=== PATIENT | male | born 1970 | race African-American/Black ===

== ENCOUNTER 2021-03-29 16:44 | Inpatient (IN) | payer SELFPAY ==
[~2021-03-29] VITALS: Ht 175.3 cm; Wt 110.9 kg
[~2021-03-29 16:44] MED LIST: ATORVASTATIN CA10 MG; BENICAR40 MG; HYDROCHLOROTHIA25 MG; METOPROLOL TART50 MG; NIFEDIPINE ER60 M1
[2021-03-29] MEDS ORDERED: SODIUM CHLORIDE 0.9% 1000ML 1,000 ML ONE (17:06)
[2021-03-29 17:15] LABS: BASOPHILS % 0.4 % (0.0-1.0); HEMATOCRIT 46.9 % (38.2-49.6); LYMPHOCYTES # (AUTO) 2.5 (1.0-3.2); LYMPHOCYTES % 24.2 % (18.0-39.1); MEAN CORPUSCULAR HEMOGLOBIN 26.3 pg (28-32); MEAN CORPUSCULAR VOLUME 82.3 fL (81-99); MONOCYTES # (AUTO) 0.7 (0.2-0.8); MONOCYTES % 7.3 % (4.4-11.3); NEUTROPHILS # (AUTO) 6.9 (2.1-6.9); NEUTROPHILS % 67.8 % (38.7-80.0); PLATELET COUNT 389 x10e3/uL (140-360); RED CELL DISTRIBUTION WIDTH 13.7 % (11.7-14.4)
[2021-03-29] MEDS ORDERED: SODIUM CHLORIDE 0.9% 1000ML 1,000 ML IV ONE (17:15)
[2021-03-29 17:24] LABS: CLARITY,URINE TURBID (CLEAR); COLOR,URINE BROWN (YELLOW); KETONES,URINE TRACE (NEGATIVE); LEUKOCYTE ESTERASE ,URINE LARGE (NEGATIVE); NITRITE,URINE NEGATIVE (NEGATIVE); PROTEIN,URINE DIPSTICK >=300 (NEGATIVE); URINE UROBILINOGEN 0.2 mg/dL (0.2 - 1)
[2021-03-29 17:28] LABS: ABG HCO3 20 mmol/L (22-26); ABG PCO2 29 mmHg (35-45); ABG PH 7.43 (7.35-7.45); ABG PO2 85 mmHg (80-105); ABG TCO2 20
[2021-03-29] MEDS ORDERED: VANCOMYCIN 1GM/NS 250 ML 250 ML IV ONE (17:30)
[2021-03-29 17:35] LABS: INR 1.13; PROTHROMBIN TIME 15.2 seconds (11.9-14.5)
[2021-03-29] MEDS ORDERED: SODIUM CHLORIDE 0.9% 100 ML ONE (17:35)
[2021-03-29] MEDS ORDERED: CEFEPIME HCL 1 GM VIAL ONE (17:35)
[2021-03-29 17:36] LABS: BACTERIA,URINE MANY /HPF; PARTIAL THROMBOPLASTIN TIME 30.3 seconds (23.8-35.5); WBC,URINE (MAN) 21-50 /HPF (0-5)
[2021-03-29 17:43] LABS: CREATINE KINASE MB 5.8 ng/mL (0-5.0)
[2021-03-29 17:45] LABS: ALBUMIN 3.2 g/dL (3.5-5.0); ALBUMIN/GLOBULIN RATIO 0.6 (0.8-2.0); CALCIUM 10.2 mg/dL (8.4-10.2); CREATININE, SERUM 4.15 mg/dL (0.72-1.25)
[2021-03-29] MEDS ORDERED: CEFEPIME 1 GM in SODIUM CHLORIDE 0.9% 50ML 50 ML IV ONE (18:00)
[2021-03-29] MEDS ORDERED: SODIUM CHLORIDE 0.9% 1000ML 1,000 ML IV STA (18:13)
[2021-03-29] MEDS ORDERED: SODIUM BICARBONATE 8.4% INJ 50 ML SYR IV STA (18:13)
[2021-03-29] MEDS ORDERED: DEXTROSE 50% SYRINGE 50 ML IV STA (18:13)
[2021-03-29] MEDS ORDERED: SOD POLYSTYRENE SULFONATE SUSP 15 GM/60 ML BTL PO ONE (18:15)
[2021-03-29] MEDS ORDERED: INSULIN REGULAR, HUMAN 100 UNIT/1 ML 3ML VIAL IV ONE (18:15)
[2021-03-29] MEDS ORDERED: NIFEDIPINE CR 30 MG TAB PO STA (18:40)
[2021-03-29] MEDS ORDERED: METOPROLOL TARTRATE INJ 1 MG/ML VIAL IV ONE (18:45)
[2021-03-29] MEDS: NICARDIPINE 20MG/200ML PREMIX 200 ML IV PRN (19:29)
[2021-03-29] MEDS ORDERED: NICARDIPINE 20MG/200ML PREMIX 200 ML ONE (19:34)
[2021-03-29] MEDS: SODIUM CHLORIDE 0.45% 1,000 ML IV SCH (20:26)
[2021-03-29 23:00] VITALS: BP 163/145
[2021-03-29 23:29] VITALS: BP 163/145
[2021-03-30] VITALS (24 sets, daily range): BP systolic 124–206; BP diastolic 90–143
[2021-03-30] MEDS: HEPARIN SOD (PORCINE) 5,000 UNIT/ML VIAL SC SCH ×4 (00:09→22:15)
[2021-03-30] MEDS: SODIUM CHLORIDE 0.45% 1,000 ML IV SCH ×2 (00:10→12:37)
[2021-03-30 04:44] LABS: BASOPHILS % 0.1 % (0.0-1.0); CALCIUM IONIZED 1.1 mmol/L (1.09-1.30); HEMATOCRIT 37.7 % (38.2-49.6); LYMPHOCYTES # (AUTO) 1.6 (1.0-3.2); LYMPHOCYTES % 19.5 % (18.0-39.1); MEAN CORPUSCULAR HEMOGLOBIN 26.2 pg (28-32); MEAN CORPUSCULAR HGB CONC 31.8 g/dL (31-35); MEAN CORPUSCULAR VOLUME 82.3 fL (81-99); MONOCYTES # (AUTO) 0.5 (0.2-0.8); MONOCYTES % 6.2 % (4.4-11.3); NEUTROPHILS # (AUTO) 6.1 (2.1-6.9); PLATELET COUNT 298 x10e3/uL (140-360); RED BLOOD COUNT 4.58 x10e6/uL (4.3-5.7); RED CELL DISTRIBUTION WIDTH 13.6 % (11.7-14.4)
[2021-03-30 05:02] LABS: MAGNESIUM 3.3 MG/DL (1.3-2.1)
[2021-03-30 05:13] LABS: ALBUMIN 2.6 g/dL (3.5-5.0); ALBUMIN/GLOBULIN RATIO 0.6 (0.8-2.0); ANION GAP 23.5 mmol/L (8-16); CALCIUM 9.1 mg/dL (8.4-10.2); CREATININE, SERUM 3.32 mg/dL (0.72-1.25); POTASSIUM 4.5 mmol/L (3.5-5.1)
[2021-03-30] MEDS ORDERED: CARVEDILOL 12.5 MG TAB PO SCH ×2 (09:00→17:00)
[2021-03-30 16:37] LABS: ANION GAP 17.4 mmol/L (8-16); CALCIUM 8.7 mg/dL (8.4-10.2); CREATININE, SERUM 3.48 mg/dL (0.72-1.25); POTASSIUM 4.4 mmol/L (3.5-5.1)
[2021-03-30] MEDS ORDERED: CEFEPIME HCL 1 GM VIAL IV SCH (17:00)
[2021-03-30] MEDS ORDERED: MINERAL OIL 132 ML BTL PR ONE (17:00)
[2021-03-30] MEDS: CEFEPIME 1 GM in SODIUM CHLORIDE 0.9% 50ML 50 ML IV SCH (18:35)
[2021-03-30 18:50] LABS: CLARITY,URINE TURBID (CLEAR); COLOR,URINE RED (YELLOW)
[2021-03-30 18:51] LABS: KETONES,URINE 1+ (NEGATIVE); LEUKOCYTE ESTERASE ,URINE LARGE (NEGATIVE); NITRITE,URINE POSITIVE (NEGATIVE); PROTEIN,URINE DIPSTICK >=300 (NEGATIVE); URINE UROBILINOGEN 1 mg/dL (0.2 - 1)
[2021-03-30 19:06] LABS: AMORPHOUS SEDIMENT,URINE MANY (FEW); BACTERIA,URINE MODERATE /HPF; WBC,URINE (MAN) 21-50 /HPF (0-5)
[2021-03-30] MEDS ORDERED: VANCOMYCIN IV ONE (20:00)
[2021-03-30] MEDS ORDERED: NIFEDIPINE CR 30 MG TAB PO SCH (21:00)
[2021-03-30] MEDS: POLYETHYLENE GLYCOL 3350 17 GM PACK PO SCH (21:03)
[2021-03-30] MEDS: CLONIDINE HCL 0.2 MG TAB PO PRN (21:04)
[2021-03-30] MEDS: ACETAMINOPHEN 325 MG/10 ML UDC NG PRN (21:04)
[2021-03-31] VITALS (43 sets, daily range): BP systolic 96–217; BP diastolic 67–155
[2021-03-31] MEDS: SODIUM CHLORIDE 0.45% 1,000 ML IV SCH ×2 (00:57→10:29)
[2021-03-31 04:46] LABS: BASOPHILS % 0.1 % (0.0-1.0); HEMATOCRIT 36.7 % (38.2-49.6); LYMPHOCYTES # (AUTO) 1.5 (1.0-3.2); LYMPHOCYTES % 16.3 % (18.0-39.1); MEAN CORPUSCULAR HEMOGLOBIN 25.8 pg (28-32); MEAN CORPUSCULAR VOLUME 85.9 fL (81-99); MONOCYTES # (AUTO) 0.5 (0.2-0.8); NEUTROPHILS # (AUTO) 6.9 (2.1-6.9); NEUTROPHILS % 77.2 % (38.7-80.0); PLATELET COUNT 278 x10e3/uL (140-360); RED BLOOD COUNT 4.27 x10e6/uL (4.3-5.7); RED CELL DISTRIBUTION WIDTH 13.5 % (11.7-14.4)
[2021-03-31 05:13] LABS: ANION GAP 19.1 mmol/L (8-16); CALCIUM 8.8 mg/dL (8.4-10.2); CREATININE, SERUM 3.34 mg/dL (0.72-1.25); PHOSPHORUS 4.6 MG/DL (2.3-4.7); POTASSIUM 4.1 mmol/L (3.5-5.1)
[2021-03-31] MEDS: HEPARIN SOD (PORCINE) 5,000 UNIT/ML VIAL SC SCH ×3 (06:15→22:00)
[2021-03-31] MEDS: NICARDIPINE 20MG/200ML PREMIX 200 ML IV PRN ×2 (06:41→09:12)
[2021-03-31] MEDS: POLYETHYLENE GLYCOL 3350 17 GM PACK PO SCH (08:24)
[2021-03-31] MEDS: ASPIRIN 325 MG TAB PO SCH (08:24)
[2021-03-31] MEDS: ATORVASTATIN 40 MG TAB NG SCH (08:24)
[2021-03-31] MEDS: CLOPIDOGREL BISULFATE 75 MG TAB PO SCH (08:24)
[2021-03-31] MEDS: ACETAMINOPHEN 325 MG/10 ML UDC NG PRN ×2 (08:25→15:15)
[2021-03-31] MEDS ORDERED: ATORVASTATIN 10 MG TAB NG SCH (09:00)
[2021-03-31] MEDS ORDERED: VANCOMYCIN IV SCH ×2 (11:00→12:00)
[2021-03-31] MEDS: CARVEDILOL 12.5 MG TAB PO SCH (15:15)
[2021-03-31] MEDS: CEFEPIME 1 GM in SODIUM CHLORIDE 0.9% 50ML 50 ML IV SCH (16:33)
[2021-03-31] MEDS: NIFEDIPINE CR 30 MG TAB PO SCH (16:37)
[2021-04-01] VITALS (22 sets, daily range): BP systolic 97–182; BP diastolic 70–122
[2021-04-01] MEDS: ACETAMINOPHEN 325 MG/10 ML UDC NG PRN ×2 (02:00→06:03)
[2021-04-01] MEDS: SODIUM CHLORIDE 0.45% 1,000 ML IV SCH ×3 (04:00→23:30)
[2021-04-01] MEDS: HEPARIN SOD (PORCINE) 5,000 UNIT/ML VIAL SC SCH ×3 (06:00→21:00)
[2021-04-01] MEDS: CLONIDINE HCL 0.2 MG TAB PO PRN (06:02)
[2021-04-01 06:37] LABS: BASOPHILS % 0.1 % (0.0-1.0); EOSINOPHILS % 0.4 % (0.0-6.0); HEMATOCRIT 32.6 % (38.2-49.6); HEMOGLOBIN 10.4 g/dL (14.0-18.0); LYMPHOCYTES # (AUTO) 1.5 (1.0-3.2); LYMPHOCYTES % 18.6 % (18.0-39.1); MEAN CORPUSCULAR HEMOGLOBIN 26.3 pg (28-32); MEAN CORPUSCULAR HGB CONC 31.9 g/dL (31-35); MEAN CORPUSCULAR VOLUME 82.5 fL (81-99); MONOCYTES # (AUTO) 0.4 (0.2-0.8); MONOCYTES % 5.3 % (4.4-11.3); NEUTROPHILS % 75.1 % (38.7-80.0); PLATELET COUNT 236 x10e3/uL (140-360); RED BLOOD COUNT 3.95 x10e6/uL (4.3-5.7); RED CELL DISTRIBUTION WIDTH 13.1 % (11.7-14.4)
[2021-04-01 06:56] LABS: ALBUMIN 2.4 g/dL (3.5-5.0); ALBUMIN/GLOBULIN RATIO 0.6 (0.8-2.0); ANION GAP 14.7 mmol/L (8-16); CALCIUM 8.8 mg/dL (8.4-10.2); CREATININE, SERUM 2.4 mg/dL (0.72-1.25); POTASSIUM 3.7 mmol/L (3.5-5.1)
[2021-04-01 07:18] LABS: MAGNESIUM 2.7 MG/DL (1.3-2.1)
[2021-04-01] MEDS: ATORVASTATIN 40 MG TAB NG SCH (08:22)
[2021-04-01] MEDS: ASPIRIN 325 MG TAB PO SCH (08:22)
[2021-04-01] MEDS: POLYETHYLENE GLYCOL 3350 17 GM PACK PO SCH (08:23)
[2021-04-01] MEDS: NIFEDIPINE CR 30 MG TAB PO SCH ×2 (08:23→16:16)
[2021-04-01] MEDS: CLOPIDOGREL BISULFATE 75 MG TAB PO SCH (08:23)
[2021-04-01] MEDS: CARVEDILOL 12.5 MG TAB PO SCH ×2 (08:23→16:15)
[2021-04-01 12:16] LABS: FERRITIN 470.83 ng/mL (21.81-274.66)
[2021-04-01] MEDS: CEFEPIME 1 GM in SODIUM CHLORIDE 0.9% 50ML 50 ML IV SCH (16:16)
[2021-04-02] VITALS (8 sets, daily range): BP systolic 105–165; BP diastolic 70–121
[2021-04-02 06:06] LABS: BASOPHILS % 0.2 % (0.0-1.0); EOSINOPHILS # (AUTO) 0.1 (0.0-0.4); EOSINOPHILS % 0.6 % (0.0-6.0); HEMATOCRIT 28.4 % (38.2-49.6); HEMOGLOBIN 8.8 g/dL (14.0-18.0); LYMPHOCYTES % 20.5 % (18.0-39.1); MEAN CORPUSCULAR HEMOGLOBIN 26.1 pg (28-32); MEAN CORPUSCULAR VOLUME 84.3 fL (81-99); MONOCYTES # (AUTO) 0.4 (0.2-0.8); MONOCYTES % 4.3 % (4.4-11.3); NEUTROPHILS # (AUTO) 7.1 (2.1-6.9); NEUTROPHILS % 73.9 % (38.7-80.0); PLATELET COUNT 207 x10e3/uL (140-360); RED BLOOD COUNT 3.37 x10e6/uL (4.3-5.7); RED CELL DISTRIBUTION WIDTH 13.2 % (11.7-14.4)
[2021-04-02 06:28] LABS: ALBUMIN 2.1 g/dL (3.5-5.0); ALBUMIN/GLOBULIN RATIO 0.5 (0.8-2.0); ANION GAP 14.8 mmol/L (8-16); CALCIUM 8.2 mg/dL (8.4-10.2); CREATININE, SERUM 2.05 mg/dL (0.72-1.25); POTASSIUM 3.8 mmol/L (3.5-5.1)
[2021-04-02] MEDS: ATORVASTATIN 40 MG TAB NG SCH (08:23)
[2021-04-02] MEDS: ASPIRIN 325 MG TAB PO SCH (08:23)
[2021-04-02] MEDS: CARVEDILOL 12.5 MG TAB PO SCH ×2 (08:23→16:07)
[2021-04-02] MEDS: NIFEDIPINE CR 30 MG TAB PO SCH ×2 (08:24→16:07)
[2021-04-02] MEDS: POLYETHYLENE GLYCOL 3350 17 GM PACK PO SCH (08:24)
[2021-04-02] MEDS: CLOPIDOGREL BISULFATE 75 MG TAB PO SCH (08:24)
[2021-04-02] MEDS: SODIUM FERRIC GLUCONATE COMPLX 125 MG in SODIUM CHLORIDE 0.9% 100 ML 100 ML IV SCH (10:05)
[2021-04-02] MEDS ORDERED: VANCOMYCIN 750MG/NS 150ML IVPB 150 ML IV SCH (11:30)
[2021-04-02] MEDS: SODIUM CHLORIDE 0.45% 1,000 ML IV SCH ×2 (13:06→21:07)
[2021-04-02] MEDS: CEFEPIME 1 GM in SODIUM CHLORIDE 0.9% 50ML 50 ML IV SCH (21:07)
[2021-04-03] VITALS (12 sets, daily range): BP systolic 104–158; BP diastolic 73–116
[2021-04-03] MEDS: CLONIDINE HCL 0.2 MG TAB PO PRN (02:00)
[2021-04-03] MEDS: SODIUM CHLORIDE 0.45% 1,000 ML IV SCH ×3 (02:34→12:34)
[2021-04-03 05:10] LABS: BASOPHILS % 0.2 % (0.0-1.0); EOSINOPHILS # (AUTO) 0.1 (0.0-0.4); EOSINOPHILS % 1.1 % (0.0-6.0); HEMATOCRIT 27.2 % (38.2-49.6); HEMOGLOBIN 8.6 g/dL (14.0-18.0); LYMPHOCYTES % 19.3 % (18.0-39.1); MEAN CORPUSCULAR HEMOGLOBIN 26.3 pg (28-32); MEAN CORPUSCULAR HGB CONC 31.6 g/dL (31-35); MEAN CORPUSCULAR VOLUME 83.2 fL (81-99); MONOCYTES # (AUTO) 0.5 (0.2-0.8); MONOCYTES % 4.6 % (4.4-11.3); NEUTROPHILS # (AUTO) 7.8 (2.1-6.9); NEUTROPHILS % 74.2 % (38.7-80.0); PLATELET COUNT 228 x10e3/uL (140-360); RED BLOOD COUNT 3.27 x10e6/uL (4.3-5.7); RED CELL DISTRIBUTION WIDTH 13.2 % (11.7-14.4)
[2021-04-03 05:36] LABS: ALBUMIN/GLOBULIN RATIO 0.5 (0.8-2.0); ANION GAP 14.8 mmol/L (8-16); CALCIUM 8.1 mg/dL (8.4-10.2); CREATININE, SERUM 1.89 mg/dL (0.72-1.25); POTASSIUM 3.8 mmol/L (3.5-5.1)
[2021-04-03] MEDS: CEFEPIME 1 GM in SODIUM CHLORIDE 0.9% 50ML 50 ML IV SCH ×2 (09:39→20:56)
[2021-04-03] MEDS: NIFEDIPINE CR 30 MG TAB PO SCH ×2 (09:40→17:56)
[2021-04-03] MEDS: CLOPIDOGREL BISULFATE 75 MG TAB PO SCH (09:40)
[2021-04-03] MEDS: ATORVASTATIN 40 MG TAB NG SCH (09:40)
[2021-04-03] MEDS: ASPIRIN 325 MG TAB PO SCH (09:40)
[2021-04-03] MEDS: CARVEDILOL 12.5 MG TAB PO SCH ×2 (09:41→17:57)
[2021-04-03] MEDS: SODIUM FERRIC GLUCONATE COMPLX 125 MG in SODIUM CHLORIDE 0.9% 100 ML 100 ML IV SCH (09:45)
[2021-04-03] MEDS: VANCOMYCIN IV SCH ×2 (10:26→21:55)
[2021-04-03] MEDS: POLYETHYLENE GLYCOL 3350 17 GM PACK PO SCH (10:26)
[2021-04-03] MEDS ORDERED: METOPROLOL TARTRATE INJ 1 MG/ML VIAL IV SCH (18:00)
[2021-04-03] MEDS: SODIUM CHLORIDE 0.9% 1000ML 1,000 ML IV SCH (20:56)
[2021-04-04] VITALS (10 sets, daily range): BP systolic 118–158; BP diastolic 78–97
[2021-04-04 04:49] LABS: BASOPHILS % 0.2 % (0.0-1.0); EOSINOPHILS # (AUTO) 0.1 (0.0-0.4); EOSINOPHILS % 0.6 % (0.0-6.0); HEMATOCRIT 27.2 % (38.2-49.6); HEMOGLOBIN 8.6 g/dL (14.0-18.0); LYMPHOCYTES # (AUTO) 1.6 (1.0-3.2); LYMPHOCYTES % 15.7 % (18.0-39.1); MEAN CORPUSCULAR HEMOGLOBIN 26.1 pg (28-32); MEAN CORPUSCULAR HGB CONC 31.6 g/dL (31-35); MEAN CORPUSCULAR VOLUME 82.4 fL (81-99); MONOCYTES # (AUTO) 0.4 (0.2-0.8); MONOCYTES % 3.9 % (4.4-11.3); NEUTROPHILS # (AUTO) 7.8 (2.1-6.9); NEUTROPHILS % 78.9 % (38.7-80.0); PLATELET COUNT 243 x10e3/uL (140-360)
[2021-04-04 05:04] LABS: ANION GAP 13.7 mmol/L (8-16); CALCIUM 7.9 mg/dL (8.4-10.2); CREATININE, SERUM 1.52 mg/dL (0.72-1.25); POTASSIUM 3.7 mmol/L (3.5-5.1)
[2021-04-04] MEDS: SODIUM CHLORIDE 0.9% 1000ML 1,000 ML IV SCH ×2 (05:07→16:33)
[2021-04-04] MEDS: CEFEPIME 1 GM in SODIUM CHLORIDE 0.9% 50ML 50 ML IV SCH ×2 (08:40→21:07)
[2021-04-04] MEDS: CLOPIDOGREL BISULFATE 75 MG TAB PO SCH (08:44)
[2021-04-04] MEDS: ASPIRIN 325 MG TAB PO SCH (08:44)
[2021-04-04] MEDS: POLYETHYLENE GLYCOL 3350 17 GM PACK PO SCH (08:44)
[2021-04-04] MEDS: NIFEDIPINE CR 30 MG TAB PO SCH ×2 (08:45→16:34)
[2021-04-04] MEDS: CARVEDILOL 12.5 MG TAB PO SCH ×2 (08:45→16:34)
[2021-04-04] MEDS: ATORVASTATIN 40 MG TAB NG SCH (08:45)
[2021-04-04] MEDS: SODIUM FERRIC GLUCONATE COMPLX 125 MG in SODIUM CHLORIDE 0.9% 100 ML 100 ML IV SCH (10:31)
[2021-04-04] MEDS: VANCOMYCIN IV SCH ×2 (12:23→21:55)
[2021-04-05] VITALS (13 sets, daily range): BP systolic 121–145; BP diastolic 87–99
[2021-04-05] MEDS: SODIUM CHLORIDE 0.9% 1000ML 1,000 ML IV SCH ×3 (01:22→23:05)
[2021-04-05 04:54] LABS: BASOPHILS % 0.2 % (0.0-1.0); EOSINOPHILS % 0.3 % (0.0-6.0); HEMATOCRIT 25.7 % (38.2-49.6); HEMOGLOBIN 8.3 g/dL (14.0-18.0); LYMPHOCYTES # (AUTO) 1.4 (1.0-3.2); LYMPHOCYTES % 16.1 % (18.0-39.1); MEAN CORPUSCULAR HEMOGLOBIN 26.5 pg (28-32); MEAN CORPUSCULAR HGB CONC 32.3 g/dL (31-35); MEAN CORPUSCULAR VOLUME 82.1 fL (81-99); MONOCYTES # (AUTO) 0.3 (0.2-0.8); MONOCYTES % 3.9 % (4.4-11.3); NEUTROPHILS # (AUTO) 6.9 (2.1-6.9); PLATELET COUNT 288 x10e3/uL (140-360); RED BLOOD COUNT 3.13 x10e6/uL (4.3-5.7); RED CELL DISTRIBUTION WIDTH 13.1 % (11.7-14.4)
[2021-04-05 05:17] LABS: ALBUMIN 1.8 g/dL (3.5-5.0); ALBUMIN/GLOBULIN RATIO 0.4 (0.8-2.0); ANION GAP 13.4 mmol/L (8-16); CALCIUM 7.7 mg/dL (8.4-10.2); CREATININE, SERUM 1.53 mg/dL (0.72-1.25); POTASSIUM 3.4 mmol/L (3.5-5.1); VANCOMYCIN,RANDOM 28.3 ug/mL
[2021-04-05] MEDS: CEFEPIME 1 GM in SODIUM CHLORIDE 0.9% 50ML 50 ML IV SCH ×2 (08:08→21:00)
[2021-04-05] MEDS: CARVEDILOL 12.5 MG TAB PO SCH ×2 (08:24→17:19)
[2021-04-05] MEDS: BALSAM PERU/CASTOR OIL 60 GM OINT...G. TP SCH (08:24)
[2021-04-05] MEDS: CLOPIDOGREL BISULFATE 75 MG TAB PO SCH (08:24)
[2021-04-05] MEDS: POLYETHYLENE GLYCOL 3350 17 GM PACK PO SCH (08:24)
[2021-04-05] MEDS: ASPIRIN 325 MG TAB PO SCH (08:24)
[2021-04-05] MEDS: ATORVASTATIN 40 MG TAB NG SCH (08:24)
[2021-04-05] MEDS: NIFEDIPINE CR 30 MG TAB PO SCH ×2 (08:24→17:19)
[2021-04-05] MEDS: SODIUM FERRIC GLUCONATE COMPLX 125 MG in SODIUM CHLORIDE 0.9% 100 ML 100 ML IV SCH (09:42)
[2021-04-05] MEDS: VANCOMYCIN IV SCH (10:00)
[2021-04-05] MEDS ORDERED: POTASSIUM CHLORIDE 20 MEQ TAB CR PO ONE (21:00)
[2021-04-05] MEDS ORDERED: KCL 20 MEQ PACKET/ ORAL SOLN NG ONE (22:30)
[2021-04-06] VITALS (7 sets, daily range): BP systolic 106–137; BP diastolic 74–95
[2021-04-06 04:43] LABS: BASOPHILS % 0.1 % (0.0-1.0); EOSINOPHILS % 0.4 % (0.0-6.0); HEMATOCRIT 25.6 % (38.2-49.6); LYMPHOCYTES # (AUTO) 1.2 (1.0-3.2); LYMPHOCYTES % 16.4 % (18.0-39.1); MEAN CORPUSCULAR HEMOGLOBIN 26.2 pg (28-32); MEAN CORPUSCULAR HGB CONC 31.3 g/dL (31-35); MEAN CORPUSCULAR VOLUME 83.9 fL (81-99); MONOCYTES # (AUTO) 0.3 (0.2-0.8); MONOCYTES % 3.6 % (4.4-11.3); NEUTROPHILS # (AUTO) 5.9 (2.1-6.9); PLATELET COUNT 306 x10e3/uL (140-360); RED BLOOD COUNT 3.05 x10e6/uL (4.3-5.7); RED CELL DISTRIBUTION WIDTH 13.5 % (11.7-14.4)
[2021-04-06 05:12] LABS: ANION GAP 13.6 mmol/L (8-16); CALCIUM 7.6 mg/dL (8.4-10.2); CREATININE, SERUM 1.5 mg/dL (0.72-1.25); POTASSIUM 3.6 mmol/L (3.5-5.1)
[2021-04-06] MEDS: POLYETHYLENE GLYCOL 3350 17 GM PACK PO SCH (11:00)
[2021-04-06] MEDS: CEFEPIME 1 GM in SODIUM CHLORIDE 0.9% 50ML 50 ML IV SCH (11:00)
[2021-04-06] MEDS: ASPIRIN 325 MG TAB PO SCH (11:00)
[2021-04-06] MEDS: CLOPIDOGREL BISULFATE 75 MG TAB PO SCH (11:00)
[2021-04-06] MEDS: NIFEDIPINE CR 30 MG TAB PO SCH ×2 (11:01→17:54)
[2021-04-06] MEDS: ATORVASTATIN 40 MG TAB NG SCH (11:01)
[2021-04-06] MEDS: BALSAM PERU/CASTOR OIL 60 GM OINT...G. TP SCH (11:01)
[2021-04-06] MEDS: CARVEDILOL 12.5 MG TAB PO SCH ×2 (11:01→17:54)
[2021-04-06] MEDS ORDERED: DIATRIZOATE MEGL/DIATRIZOA SOD 120 ML BTL PO ONE (11:49)
[2021-04-07] VITALS (8 sets, daily range): BP systolic 96–145; BP diastolic 60–85
[2021-04-07 07:09] LABS: BASOPHILS % 0.3 % (0.0-1.0); EOSINOPHILS % 0.4 % (0.0-6.0); HEMOGLOBIN 7.9 g/dL (14.0-18.0); LYMPHOCYTES # (AUTO) 1.6 (1.0-3.2); LYMPHOCYTES % 16.6 % (18.0-39.1); MEAN CORPUSCULAR HEMOGLOBIN 26.4 pg (28-32); MEAN CORPUSCULAR HGB CONC 31.6 g/dL (31-35); MEAN CORPUSCULAR VOLUME 83.6 fL (81-99); MONOCYTES # (AUTO) 0.5 (0.2-0.8); MONOCYTES % 4.9 % (4.4-11.3); NEUTROPHILS # (AUTO) 7.4 (2.1-6.9); NEUTROPHILS % 77.4 % (38.7-80.0); PLATELET COUNT 384 x10e3/uL (140-360); RED BLOOD COUNT 2.99 x10e6/uL (4.3-5.7); RED CELL DISTRIBUTION WIDTH 13.6 % (11.7-14.4)
[2021-04-07 07:29] LABS: ANION GAP 13.7 mmol/L (8-16); CALCIUM 7.7 mg/dL (8.4-10.2); CREATININE, SERUM 1.6 mg/dL (0.72-1.25); POTASSIUM 3.7 mmol/L (3.5-5.1)
[2021-04-07] MEDS: ATORVASTATIN 40 MG TAB NG SCH (09:15)
[2021-04-07] MEDS: ASPIRIN 325 MG TAB PO SCH (09:15)
[2021-04-07] MEDS: CARVEDILOL 12.5 MG TAB PO SCH ×2 (09:16→17:30)
[2021-04-07] MEDS: CLOPIDOGREL BISULFATE 75 MG TAB PO SCH (09:16)
[2021-04-07] MEDS: POLYETHYLENE GLYCOL 3350 17 GM PACK PO SCH (09:16)
[2021-04-07] MEDS: NIFEDIPINE CR 30 MG TAB PO SCH ×2 (09:16→17:31)
[2021-04-07] MEDS: BALSAM PERU/CASTOR OIL 60 GM OINT...G. TP SCH (15:02)
[2021-04-08] VITALS (8 sets, daily range): BP systolic 108–143; BP diastolic 67–98
[2021-04-08 06:12] LABS: BASOPHILS % 0.2 % (0.0-1.0); EOSINOPHILS # (AUTO) 0.1 (0.0-0.4); EOSINOPHILS % 0.5 % (0.0-6.0); HEMATOCRIT 24.2 % (38.2-49.6); HEMOGLOBIN 7.8 g/dL (14.0-18.0); LYMPHOCYTES # (AUTO) 1.9 (1.0-3.2); LYMPHOCYTES % 20.4 % (18.0-39.1); MEAN CORPUSCULAR HEMOGLOBIN 26.7 pg (28-32); MEAN CORPUSCULAR HGB CONC 32.2 g/dL (31-35); MEAN CORPUSCULAR VOLUME 82.9 fL (81-99); MONOCYTES # (AUTO) 0.6 (0.2-0.8); MONOCYTES % 6.4 % (4.4-11.3); NEUTROPHILS # (AUTO) 6.9 (2.1-6.9); NEUTROPHILS % 72.2 % (38.7-80.0); PLATELET COUNT 392 x10e3/uL (140-360); RED BLOOD COUNT 2.92 x10e6/uL (4.3-5.7); RED CELL DISTRIBUTION WIDTH 14.2 % (11.7-14.4)
[2021-04-08 07:46] LABS: ANION GAP 12.5 mmol/L (8-16); CALCIUM 7.8 mg/dL (8.4-10.2); CREATININE, SERUM 1.54 mg/dL (0.72-1.25); POTASSIUM 3.5 mmol/L (3.5-5.1)
[2021-04-08] MEDS: ASPIRIN 325 MG TAB PO SCH (10:12)
[2021-04-08] MEDS: CLOPIDOGREL BISULFATE 75 MG TAB PO SCH (10:12)
[2021-04-08] MEDS: BALSAM PERU/CASTOR OIL 60 GM OINT...G. TP SCH (10:12)
[2021-04-08] MEDS: CARVEDILOL 12.5 MG TAB PO SCH ×2 (10:12→16:39)
[2021-04-08] MEDS: ATORVASTATIN 40 MG TAB NG SCH (10:12)
[2021-04-08] MEDS: NIFEDIPINE CR 30 MG TAB PO SCH ×2 (10:12→16:39)
[2021-04-08] MEDS: POLYETHYLENE GLYCOL 3350 17 GM PACK PO SCH (10:12)
[2021-04-08] MEDS ORDERED: KCL 20 MEQ PACKET/ ORAL SOLN NG ONE (17:30)
[2021-04-09] VITALS (9 sets, daily range): BP systolic 100–130; BP diastolic 64–80
[2021-04-09 06:18] LABS: BASOPHILS % 0.3 % (0.0-1.0); EOSINOPHILS % 0.4 % (0.0-6.0); HEMATOCRIT 24.3 % (38.2-49.6); HEMOGLOBIN 7.6 g/dL (14.0-18.0); LYMPHOCYTES % 20.2 % (18.0-39.1); MEAN CORPUSCULAR HEMOGLOBIN 26.3 pg (28-32); MEAN CORPUSCULAR HGB CONC 31.3 g/dL (31-35); MEAN CORPUSCULAR VOLUME 84.1 fL (81-99); MONOCYTES # (AUTO) 0.6 (0.2-0.8); MONOCYTES % 5.6 % (4.4-11.3); NEUTROPHILS # (AUTO) 7.1 (2.1-6.9); NEUTROPHILS % 73.1 % (38.7-80.0); PLATELET COUNT 438 x10e3/uL (140-360); RED BLOOD COUNT 2.89 x10e6/uL (4.3-5.7); RED CELL DISTRIBUTION WIDTH 14.4 % (11.7-14.4)
[2021-04-09 06:39] LABS: ANION GAP 12.6 mmol/L (8-16); CALCIUM 7.8 mg/dL (8.4-10.2); CREATININE, SERUM 1.55 mg/dL (0.72-1.25); POTASSIUM 3.6 mmol/L (3.5-5.1)
[2021-04-09] MEDS: CLOPIDOGREL BISULFATE 75 MG TAB PO SCH (08:40)
[2021-04-09] MEDS: PANTOPRAZOLE SOD 40 MG TABEC PO SCH (08:40)
[2021-04-09] MEDS: CARVEDILOL 12.5 MG TAB PO SCH ×2 (08:40→16:16)
[2021-04-09] MEDS: POLYETHYLENE GLYCOL 3350 17 GM PACK PO SCH (08:40)
[2021-04-09] MEDS: NIFEDIPINE CR 30 MG TAB PO SCH ×2 (08:40→16:16)
[2021-04-09] MEDS: ASPIRIN 325 MG TAB PO SCH (08:40)
[2021-04-09] MEDS: ATORVASTATIN 40 MG TAB NG SCH (08:40)
[2021-04-09] MEDS: BALSAM PERU/CASTOR OIL 60 GM OINT...G. TP SCH (10:44)
[2021-04-09] MEDS ORDERED: SODIUM FERRIC GLUCONATE COMPLX 125 MG in SODIUM CHLORIDE 0.9% 100 ML 100 ML IV ONE (11:00)
[2021-04-10] VITALS (22 sets, daily range): BP systolic 62–130; BP diastolic 47–87
[2021-04-10 05:14] LABS: BASOPHILS % 0.4 % (0.0-1.0); HEMATOCRIT 23.4 % (38.2-49.6); HEMOGLOBIN 7.5 g/dL (14.0-18.0); LYMPHOCYTES # (AUTO) 1.9 (1.0-3.2); LYMPHOCYTES % 22.5 % (18.0-39.1); MEAN CORPUSCULAR HEMOGLOBIN 26.6 pg (28-32); MEAN CORPUSCULAR HGB CONC 32.1 g/dL (31-35); MONOCYTES # (AUTO) 0.4 (0.2-0.8); MONOCYTES % 4.8 % (4.4-11.3); NEUTROPHILS % 71.8 % (38.7-80.0); PLATELET COUNT 443 x10e3/uL (140-360); RED BLOOD COUNT 2.82 x10e6/uL (4.3-5.7); RED CELL DISTRIBUTION WIDTH 14.6 % (11.7-14.4)
[2021-04-10] MEDS ORDERED: SODIUM CHLORIDE 0.9% 1000ML 1,000 ML IV STA (05:30)
[2021-04-10] MEDS ORDERED: SODIUM CHLORIDE 0.9% 1000ML 1,000 ML ONE (05:55)
[2021-04-10] MEDS ORDERED: ACETAMINOPHEN 1000 MG/100 ML IV STA (06:00)
[2021-04-10] MEDS ORDERED: ASPIRIN 81 MG CHEW TAB PO ONE (06:00)
[2021-04-10 06:14] LABS: CREATINE KINASE MB 2.5 ng/mL (0-5.0)
[2021-04-10] MEDS ORDERED: ACETAMINOPHEN 1000 MG/100 ML 100 ML IV ONE (06:35)
[2021-04-10 07:13] LABS: INR 1.25; PROTHROMBIN TIME 16.4 seconds (11.9-14.5)
[2021-04-10 07:14] LABS: PARTIAL THROMBOPLASTIN TIME 37.6 seconds (23.8-35.5)
[2021-04-10 07:18] LABS: BASOPHILS % 0.3 % (0.0-1.0); HEMATOCRIT 22.4 % (38.2-49.6); LYMPHOCYTES # (AUTO) 2.8 (1.0-3.2); LYMPHOCYTES % 35.1 % (18.0-39.1); MEAN CORPUSCULAR HEMOGLOBIN 26.6 pg (28-32); MEAN CORPUSCULAR HGB CONC 30.4 g/dL (31-35); MEAN CORPUSCULAR VOLUME 87.5 fL (81-99); MONOCYTES # (AUTO) 0.2 (0.2-0.8); MONOCYTES % 2.9 % (4.4-11.3); NEUTROPHILS # (AUTO) 4.8 (2.1-6.9); NEUTROPHILS % 61.2 % (38.7-80.0); PLATELET COUNT 437 x10e3/uL (140-360); RED BLOOD COUNT 2.56 x10e6/uL (4.3-5.7); RED CELL DISTRIBUTION WIDTH 14.6 % (11.7-14.4)
[2021-04-10 07:22] LABS: HEMOGLOBIN 6.8 g/dL (14.0-18.0)
[2021-04-10 07:24] LABS: ALBUMIN 1.5 g/dL (3.5-5.0); ALBUMIN/GLOBULIN RATIO 0.4 (0.8-2.0); ANION GAP 18.8 mmol/L (8-16); CALCIUM 7.4 mg/dL (8.4-10.2); CREATININE, SERUM 2.24 mg/dL (0.72-1.25); POTASSIUM 3.8 mmol/L (3.5-5.1)
[2021-04-10] MEDS: PANTOPRAZOLE SOD 40 MG TABEC PO SCH (07:30)
[2021-04-10] MEDS ORDERED: LACTATED RINGER'S 1,000 ML INJ ONE (07:30)
[2021-04-10 07:31] LABS: CREATINE KINASE MB 3.1 ng/mL (0-5.0)
[2021-04-10] MEDS ORDERED: LACTATED RINGER'S 1,000 ML ONE (07:41)
[2021-04-10] MEDS ORDERED: VANCOMYCIN 1GM/NS 250 ML 250 ML IV ONE (07:45)
[2021-04-10] MEDS ORDERED: SODIUM CHLORIDE 0.9% 250ML 250 ML IV ONE (08:15)
[2021-04-10] MEDS ORDERED: ACETAMINOPHEN 325 MG TAB PO PRN (08:15)
[2021-04-10 08:19] LABS: ANISOCYTOSIS SLIGHT; LYMPHOCYTES % (MANUAL) 24 % (19-48); MONOCYTES % (MANUAL) 6 % (3.4-9.0); NEUTROPHILS % (MANUAL) 70 % (40-74); PLATELET ESTIMATE SLIGHTLY INCREASED; RBC MORPHOLOGY COMMENT NORMAL
[2021-04-10 08:20] LABS: PLATELET MORPHOLOGY COMMENT FEW LARGE
[2021-04-10] MEDS: POLYETHYLENE GLYCOL 3350 17 GM PACK PO SCH (08:48)
[2021-04-10 09:07] LABS: ABG PCO2 46 mmHg (35-45); ABG PH 7.27 (7.35-7.45)
[2021-04-10 09:08] LABS: ABG HCO3 21 mmol/L (22-26); ABG PO2 79 mmHg (80-105); ABG TCO2 22
[2021-04-10 09:10] LABS: ANISOCYTOSIS SLIGHT; BAND NEUTROPHILS % (MANUAL) 1 %; LYMPHOCYTES % (MANUAL) 44 % (19-48); MONOCYTES % (MANUAL) 4 % (3.4-9.0); NEUTROPHILS % (MANUAL) 51 % (40-74); PLATELET ESTIMATE SLIGHTLY INCREASED; PLATELET MORPHOLOGY COMMENT FEW GIANT
[2021-04-10 09:11] LABS: RBC MORPHOLOGY COMMENT NORMAL
[2021-04-10] MEDS: BALSAM PERU/CASTOR OIL 60 GM OINT...G. TP SCH (09:12)
[2021-04-10] MEDS: ATORVASTATIN 40 MG TAB NG SCH (09:12)
[2021-04-10] MEDS: ASPIRIN 325 MG TAB PO SCH (09:12)
[2021-04-10] MEDS: CLOPIDOGREL BISULFATE 75 MG TAB PO SCH (09:12)
[2021-04-10] MEDS: MEROPENEM 1GM / NS 100ML 100 ML IV SCH ×2 (10:40→21:34)
[2021-04-10] MEDS ORDERED: HEPARIN 25,000 UNIT 1,100 UNIT in DEXTROSE 5% 250ML 250 ML IV SCH (11:00)
[2021-04-10] MEDS ORDERED: HEPARIN 25,000 UNIT 1,200 UNIT in DEXTROSE 5% 250ML 250 ML IV SCH (12:00)
[2021-04-10 12:06] LABS: ABG HCO3 21 mmol/L (22-26); ABG PCO2 32 mmHg (35-45); ABG PH 7.43 (7.35-7.45); ABG PO2 115 mmHg (80-105); ABG TCO2 22
[2021-04-10] MEDS: NOREPINEPHRINE 8 MG/D5W 250 ML 250 ML IV PRN (13:38)
[2021-04-10] MEDS ORDERED: ATROPINE SULFATE 0.1 MG/ML 10ML SYR IV ONE (13:49)
[2021-04-10] MEDS ORDERED: EPINEPHRINE HCL 1:1000 1ML 1 MG/ML AMP IV ONE (13:49)
[2021-04-10] MEDS ORDERED: SODIUM BICARBONATE 8.4% INJ 50 ML SYR IV ONE (13:49)
[2021-04-10] MEDS ORDERED: SODIUM CHLORIDE 0.9% 250ML 250 ML ONE (16:23)
[2021-04-10] MEDS: FENTANYL 2000MCG/NS 250 250 ML IV SCH (17:42)
[2021-04-10] MEDS: LORAZEPAM INJ 2 MG/ML VIAL IV PRN (21:50)
[2021-04-11] VITALS (26 sets, daily range): BP systolic 75–101; BP diastolic 60–74
[2021-04-11 00:23] LABS: HEMATOCRIT 21.9 % (38.2-49.6); HEMOGLOBIN 7.2 g/dL (14.0-18.0)
[2021-04-11] MEDS: NOREPINEPHRINE 8 MG/D5W 250 ML 250 ML IV PRN ×2 (00:36→22:21)
[2021-04-11] MEDS: LACTATED RINGER'S 1,000 ML INJ SCH ×5 (01:19→18:10)
[2021-04-11] MEDS: FENTANYL 2000MCG/NS 250 250 ML IV SCH ×2 (02:30→15:24)
[2021-04-11 06:27] LABS: BASOPHILS % 0.2 % (0.0-1.0); HEMATOCRIT 21.1 % (38.2-49.6); LYMPHOCYTES # (AUTO) 1.9 (1.0-3.2); LYMPHOCYTES % 14.9 % (18.0-39.1); MEAN CORPUSCULAR HEMOGLOBIN 26.6 pg (28-32); MEAN CORPUSCULAR HGB CONC 32.2 g/dL (31-35); MEAN CORPUSCULAR VOLUME 82.4 fL (81-99); MONOCYTES # (AUTO) 0.3 (0.2-0.8); MONOCYTES % 2.5 % (4.4-11.3); NEUTROPHILS # (AUTO) 10.5 (2.1-6.9); NEUTROPHILS % 80.9 % (38.7-80.0); PLATELET COUNT 354 x10e3/uL (140-360); RED BLOOD COUNT 2.56 x10e6/uL (4.3-5.7); RED CELL DISTRIBUTION WIDTH 14.7 % (11.7-14.4)
[2021-04-11 06:39] LABS: HEMOGLOBIN 6.8 g/dL (14.0-18.0)
[2021-04-11 06:55] LABS: ALBUMIN 1.4 g/dL (3.5-5.0); ALBUMIN/GLOBULIN RATIO 0.3 (0.8-2.0); CALCIUM 7.5 mg/dL (8.4-10.2); CREATININE, SERUM 3.04 mg/dL (0.72-1.25)
[2021-04-11] MEDS ORDERED: SODIUM CHLORIDE 0.9% 250ML 250 ML IV ONE (08:00)
[2021-04-11] MEDS: PANTOPRAZOLE SOD 40 MG TABEC PO SCH (08:01)
[2021-04-11] MEDS: POLYETHYLENE GLYCOL 3350 17 GM PACK PO SCH (08:02)
[2021-04-11] MEDS: ASPIRIN 325 MG TAB PO SCH (08:02)
[2021-04-11] MEDS: CLOPIDOGREL BISULFATE 75 MG TAB PO SCH (08:02)
[2021-04-11] MEDS: BALSAM PERU/CASTOR OIL 60 GM OINT...G. TP SCH (08:02)
[2021-04-11] MEDS: ATORVASTATIN 40 MG TAB NG SCH (08:02)
[2021-04-11] MEDS: MEROPENEM 1GM / NS 100ML 100 ML IV SCH ×2 (08:33→21:22)
[2021-04-11 10:20] LABS: ANISOCYTOSIS SLIGHT; BAND NEUTROPHILS % (MANUAL) 2 %; LYMPHOCYTES % (MANUAL) 25 % (19-48); MONOCYTES % (MANUAL) 1 % (3.4-9.0); NEUTROPHILS % (MANUAL) 72 % (40-74); PLATELET ESTIMATE ADEQUATE; PLATELET MORPHOLOGY COMMENT NORMAL; RBC MORPHOLOGY COMMENT NORMAL
[2021-04-11] MEDS: Pantoprazole IV 50 ML IV SCH ×3 (12:56→22:20)
[2021-04-11] MEDS ORDERED: BUMETANIDE INJ 0.25MG/ML 4ML VIAL IV NR (13:15)
[2021-04-11 16:42] LABS: ABG HCO3 19 mmol/L (22-26); ABG PCO2 23 mmHg (35-45); ABG PH 7.53 (7.35-7.45); ABG PO2 187 mmHg (80-105); ABG TCO2 20
[2021-04-12] VITALS (16 sets, daily range): BP systolic 90–144; BP diastolic 54–93
[2021-04-12] MEDS: Pantoprazole IV 50 ML IV SCH ×5 (04:00→21:08)
[2021-04-12 06:00] LABS: BASOPHILS % 0.3 % (0.0-1.0); EOSINOPHILS # (AUTO) 0.1 (0.0-0.4); EOSINOPHILS % 0.6 % (0.0-6.0); HEMATOCRIT 23.7 % (38.2-49.6); HEMOGLOBIN 7.7 g/dL (14.0-18.0); LYMPHOCYTES # (AUTO) 1.6 (1.0-3.2); LYMPHOCYTES % 12.2 % (18.0-39.1); MEAN CORPUSCULAR HEMOGLOBIN 26.6 pg (28-32); MEAN CORPUSCULAR HGB CONC 32.5 g/dL (31-35); MEAN CORPUSCULAR VOLUME 81.7 fL (81-99); MONOCYTES # (AUTO) 0.3 (0.2-0.8); MONOCYTES % 2.6 % (4.4-11.3); NEUTROPHILS # (AUTO) 10.8 (2.1-6.9); NEUTROPHILS % 83.9 % (38.7-80.0); PLATELET COUNT 315 x10e3/uL (140-360); RED CELL DISTRIBUTION WIDTH 14.4 % (11.7-14.4)
[2021-04-12 06:21] LABS: ALBUMIN 1.3 g/dL (3.5-5.0); ALBUMIN/GLOBULIN RATIO 0.3 (0.8-2.0); CALCIUM 7.4 mg/dL (8.4-10.2); CREATININE, SERUM 3.48 mg/dL (0.72-1.25)
[2021-04-12] MEDS: FENTANYL 2000MCG/NS 250 250 ML IV SCH (07:21)
[2021-04-12] MEDS: LACTATED RINGER'S 1,000 ML INJ SCH ×5 (07:30→19:55)
[2021-04-12] MEDS: ATORVASTATIN 40 MG TAB NG SCH (08:42)
[2021-04-12] MEDS: POLYETHYLENE GLYCOL 3350 17 GM PACK PO SCH (08:42)
[2021-04-12] MEDS: BALSAM PERU/CASTOR OIL 60 GM OINT...G. TP SCH (08:42)
[2021-04-12] MEDS: MEROPENEM 1GM / NS 100ML 100 ML IV SCH ×2 (08:42→21:08)
[2021-04-12] MEDS: ASPIRIN 325 MG TAB PO SCH (08:42)
[2021-04-12 14:22] LABS: ABG HCO3 21 mmol/L (22-26); ABG PCO2 29 mmHg (35-45); ABG PH 7.48 (7.35-7.45); ABG PO2 117 mmHg (80-105); ABG TCO2 23
[2021-04-12] MEDS ORDERED: BUMETANIDE INJ 0.25MG/ML 4ML VIAL IV ONE (14:30)
[2021-04-13] VITALS (15 sets, daily range): BP systolic 104–134; BP diastolic 74–93
[2021-04-13] MEDS: Pantoprazole IV 50 ML IV SCH ×5 (02:00→20:36)
[2021-04-13] MEDS: LACTATED RINGER'S 1,000 ML INJ SCH ×4 (02:55→20:36)
[2021-04-13 04:48] LABS: BASOPHILS % 0.3 % (0.0-1.0); EOSINOPHILS % 0.2 % (0.0-6.0); HEMOGLOBIN 8.2 g/dL (14.0-18.0); LYMPHOCYTES # (AUTO) 1.2 (1.0-3.2); LYMPHOCYTES % 10.4 % (18.0-39.1); MEAN CORPUSCULAR HGB CONC 32.8 g/dL (31-35); MEAN CORPUSCULAR VOLUME 82.2 fL (81-99); MONOCYTES # (AUTO) 0.4 (0.2-0.8); MONOCYTES % 3.3 % (4.4-11.3); NEUTROPHILS # (AUTO) 10.2 (2.1-6.9); NEUTROPHILS % 85.3 % (38.7-80.0); PLATELET COUNT 295 x10e3/uL (140-360); RED BLOOD COUNT 3.04 x10e6/uL (4.3-5.7); RED CELL DISTRIBUTION WIDTH 14.3 % (11.7-14.4)
[2021-04-13 05:27] LABS: ALBUMIN 1.3 g/dL (3.5-5.0); ALBUMIN/GLOBULIN RATIO 0.3 (0.8-2.0); ANION GAP 16.8 mmol/L (8-16); CALCIUM 7.4 mg/dL (8.4-10.2); CREATININE, SERUM 3.26 mg/dL (0.72-1.25); POTASSIUM 3.8 mmol/L (3.5-5.1)
[2021-04-13 06:35] LABS: LYMPHOCYTES % (MANUAL) 7 % (19-48); MONOCYTES % (MANUAL) 2 % (3.4-9.0); NEUTROPHILS % (MANUAL) 91 % (40-74); PLATELET ESTIMATE ADEQUATE; PLATELET MORPHOLOGY COMMENT NORMAL; RBC MORPHOLOGY COMMENT NORMAL
[2021-04-13] MEDS: BALSAM PERU/CASTOR OIL 60 GM OINT...G. TP SCH (08:29)
[2021-04-13] MEDS: ATORVASTATIN 40 MG TAB NG SCH (08:29)
[2021-04-13] MEDS: ASPIRIN 325 MG TAB PO SCH (08:29)
[2021-04-13] MEDS: POLYETHYLENE GLYCOL 3350 17 GM PACK PO SCH (08:29)
[2021-04-13] MEDS: MEROPENEM 1GM / NS 100ML 100 ML IV SCH ×2 (08:32→20:36)
[2021-04-13] MEDS: FENTANYL 2000MCG/NS 250 250 ML IV SCH (09:00)
[2021-04-14] VITALS (26 sets, daily range): BP systolic 105–143; BP diastolic 76–94
[2021-04-14] MEDS: Pantoprazole IV 50 ML IV SCH ×5 (04:25→20:57)
[2021-04-14] MEDS: FENTANYL 2000MCG/NS 250 250 ML IV SCH (04:27)
[2021-04-14 04:45] LABS: BASOPHILS % 0.1 % (0.0-1.0); EOSINOPHILS % 0.1 % (0.0-6.0); HEMATOCRIT 25.5 % (38.2-49.6); HEMOGLOBIN 8.3 g/dL (14.0-18.0); LYMPHOCYTES # (AUTO) 1.1 (1.0-3.2); LYMPHOCYTES % 12.4 % (18.0-39.1); MEAN CORPUSCULAR HEMOGLOBIN 26.9 pg (28-32); MEAN CORPUSCULAR HGB CONC 32.5 g/dL (31-35); MEAN CORPUSCULAR VOLUME 82.5 fL (81-99); MONOCYTES # (AUTO) 0.4 (0.2-0.8); MONOCYTES % 4.7 % (4.4-11.3); NEUTROPHILS # (AUTO) 7.3 (2.1-6.9); NEUTROPHILS % 81.9 % (38.7-80.0); PLATELET COUNT 275 x10e3/uL (140-360); RED BLOOD COUNT 3.09 x10e6/uL (4.3-5.7); RED CELL DISTRIBUTION WIDTH 14.4 % (11.7-14.4)
[2021-04-14 05:05] LABS: ALBUMIN 1.1 g/dL (3.5-5.0); ALBUMIN/GLOBULIN RATIO 0.3 (0.8-2.0); ANION GAP 14.2 mmol/L (8-16); CALCIUM 7.4 mg/dL (8.4-10.2); CREATININE, SERUM 2.78 mg/dL (0.72-1.25); POTASSIUM 3.2 mmol/L (3.5-5.1)
[2021-04-14] MEDS: BALSAM PERU/CASTOR OIL 60 GM OINT...G. TP SCH (08:02)
[2021-04-14] MEDS: ASPIRIN 325 MG TAB PO SCH (08:02)
[2021-04-14] MEDS: ATORVASTATIN 40 MG TAB NG SCH (08:02)
[2021-04-14] MEDS: POLYETHYLENE GLYCOL 3350 17 GM PACK PO SCH (08:02)
[2021-04-14] MEDS ORDERED: POTASSIUM CHLORIDE 20 MEQ TAB CR PO ONE ×2 (09:00→13:00)
[2021-04-14] MEDS: MEROPENEM 1GM / NS 100ML 100 ML IV SCH ×2 (09:10→20:57)
[2021-04-14] MEDS: LACTATED RINGER'S 1,000 ML INJ SCH (09:29)
[2021-04-15] VITALS (27 sets, daily range): BP systolic 109–198; BP diastolic 81–133
[2021-04-15] MEDS: LORAZEPAM INJ 2 MG/ML VIAL IV PRN (00:57)
[2021-04-15] MEDS ORDERED: LABETALOL HCL 5 MG/ML 20ML VIAL IV PRN (01:15)
[2021-04-15] MEDS ORDERED: ACETAMINOPHEN 1000 MG/100 ML IV STA (01:15)
[2021-04-15] MEDS ORDERED: LABETALOL HCL 20 ML ONE (01:16)
[2021-04-15] MEDS ORDERED: ACETAMINOPHEN 1000 MG/100 ML IV PRN (01:30)
[2021-04-15] MEDS: Pantoprazole IV 50 ML IV SCH ×5 (02:07→21:23)
[2021-04-15 03:43] LABS: BASOPHILS % 0.3 % (0.0-1.0); EOSINOPHILS % 0.2 % (0.0-6.0); HEMATOCRIT 27.8 % (38.2-49.6); HEMOGLOBIN 9.1 g/dL (14.0-18.0); LYMPHOCYTES % 15.1 % (18.0-39.1); MEAN CORPUSCULAR HGB CONC 32.7 g/dL (31-35); MEAN CORPUSCULAR VOLUME 82.5 fL (81-99); MONOCYTES # (AUTO) 0.4 (0.2-0.8); MONOCYTES % 6.1 % (4.4-11.3); NEUTROPHILS % 77.7 % (38.7-80.0); PLATELET COUNT 297 x10e3/uL (140-360); RED BLOOD COUNT 3.37 x10e6/uL (4.3-5.7); RED CELL DISTRIBUTION WIDTH 13.9 % (11.7-14.4)
[2021-04-15 04:02] LABS: ALBUMIN 1.2 g/dL (3.5-5.0); ALBUMIN/GLOBULIN RATIO 0.3 (0.8-2.0); ANION GAP 16.4 mmol/L (8-16); CALCIUM 7.3 mg/dL (8.4-10.2); CREATININE, SERUM 2.65 mg/dL (0.72-1.25); POTASSIUM 3.4 mmol/L (3.5-5.1)
[2021-04-15] MEDS ORDERED: POTASSIUM CHLORIDE 20MEQ/100ML 100 ML IV ONE ×2 (06:15→12:34)
[2021-04-15] MEDS: ATORVASTATIN 40 MG TAB NG SCH (08:02)
[2021-04-15] MEDS: POLYETHYLENE GLYCOL 3350 17 GM PACK PO SCH (08:03)
[2021-04-15] MEDS: BALSAM PERU/CASTOR OIL 60 GM OINT...G. TP SCH (08:03)
[2021-04-15] MEDS: ASPIRIN 325 MG TAB PO SCH (08:03)
[2021-04-15] MEDS: MEROPENEM 1GM / NS 100ML 100 ML IV SCH ×2 (10:09→19:41)
[2021-04-15] MEDS: LACTATED RINGER'S 1,000 ML INJ SCH ×2 (10:09→22:26)
[2021-04-15] MEDS: LABETALOL HCL 5 MG/ML 20ML VIAL IV PRN ×2 (13:54→14:04)
[2021-04-15] MEDS ORDERED: LORAZEPAM INJ 2 MG/ML VIAL IV PRN (14:15)
[2021-04-15] MEDS: PROPOFOL IV EMULSION 10MG/ML 100 ML IV SCH ×3 (16:11→22:26)
[2021-04-15] MEDS ORDERED: PROPOFOL IV EMULSION 10MG/ML 100 ML IV SCH (21:30)
[2021-04-16] VITALS (26 sets, daily range): BP systolic 96–160; BP diastolic 71–118
[2021-04-16 03:54] LABS: BASOPHILS % 0.1 % (0.0-1.0); EOSINOPHILS % 0.1 % (0.0-6.0); HEMATOCRIT 27.6 % (38.2-49.6); LYMPHOCYTES # (AUTO) 1.1 (1.0-3.2); LYMPHOCYTES % 15.7 % (18.0-39.1); MEAN CORPUSCULAR HEMOGLOBIN 27.3 pg (28-32); MEAN CORPUSCULAR HGB CONC 32.6 g/dL (31-35); MEAN CORPUSCULAR VOLUME 83.6 fL (81-99); MONOCYTES # (AUTO) 0.3 (0.2-0.8); MONOCYTES % 3.9 % (4.4-11.3); NEUTROPHILS # (AUTO) 5.7 (2.1-6.9); NEUTROPHILS % 79.4 % (38.7-80.0); PLATELET COUNT 295 x10e3/uL (140-360)
[2021-04-16] MEDS: Pantoprazole IV 50 ML IV SCH ×5 (04:00→23:51)
[2021-04-16 04:16] LABS: ALBUMIN 1.1 g/dL (3.5-5.0); ALBUMIN/GLOBULIN RATIO 0.3 (0.8-2.0); ANION GAP 14.6 mmol/L (8-16); CALCIUM 7.2 mg/dL (8.4-10.2); CREATININE, SERUM 2.2 mg/dL (0.72-1.25); POTASSIUM 3.6 mmol/L (3.5-5.1)
[2021-04-16] MEDS: METOCLOPRAMIDE HCL 10 MG/2ML VIAL IV SCH ×4 (05:47→23:51)
[2021-04-16] MEDS: ASPIRIN 325 MG TAB PO SCH (08:14)
[2021-04-16] MEDS: POLYETHYLENE GLYCOL 3350 17 GM PACK PO SCH (08:14)
[2021-04-16] MEDS: ATORVASTATIN 40 MG TAB NG SCH (08:14)
[2021-04-16] MEDS: BALSAM PERU/CASTOR OIL 60 GM OINT...G. TP SCH (08:15)
[2021-04-16] MEDS: PROPOFOL IV EMULSION 10MG/ML 100 ML IV SCH ×2 (08:21→22:48)
[2021-04-16] MEDS: MEROPENEM 1GM / NS 100ML 100 ML IV SCH ×2 (09:30→21:56)
[2021-04-16 14:35] LABS: ABG HCO3 23 mmol/L (22-26); ABG PCO2 30 mmHg (35-45); ABG PH 7.49 (7.35-7.45); ABG PO2 149 mmHg (80-105); ABG TCO2 24
[2021-04-16] MEDS: LACTATED RINGER'S 1,000 ML INJ SCH ×2 (14:52→23:51)
[2021-04-17] VITALS (16 sets, daily range): BP systolic 139–162; BP diastolic 102–117
[2021-04-17] MEDS: LABETALOL HCL 5 MG/ML 20ML VIAL IV PRN ×2 (01:25→22:08)
[2021-04-17] MEDS: Pantoprazole IV 50 ML IV SCH ×4 (02:43→20:26)
[2021-04-17] MEDS: METOCLOPRAMIDE HCL 10 MG/2ML VIAL IV SCH ×3 (05:30→17:40)
[2021-04-17 05:39] LABS: BASOPHILS % 0.1 % (0.0-1.0); EOSINOPHILS % 0.3 % (0.0-6.0); HEMATOCRIT 29.5 % (38.2-49.6); HEMOGLOBIN 9.3 g/dL (14.0-18.0); LYMPHOCYTES # (AUTO) 1.3 (1.0-3.2); LYMPHOCYTES % 16.8 % (18.0-39.1); MEAN CORPUSCULAR HEMOGLOBIN 26.8 pg (28-32); MEAN CORPUSCULAR HGB CONC 31.5 g/dL (31-35); MONOCYTES # (AUTO) 0.3 (0.2-0.8); MONOCYTES % 3.6 % (4.4-11.3); NEUTROPHILS # (AUTO) 6.3 (2.1-6.9); NEUTROPHILS % 78.7 % (38.7-80.0); PLATELET COUNT 261 x10e3/uL (140-360); RED BLOOD COUNT 3.47 x10e6/uL (4.3-5.7); RED CELL DISTRIBUTION WIDTH 14.2 % (11.7-14.4)
[2021-04-17 06:13] LABS: ALBUMIN 1.1 g/dL (3.5-5.0); ALBUMIN/GLOBULIN RATIO 0.3 (0.8-2.0); ANION GAP 13.3 mmol/L (8-16); CALCIUM 7.6 mg/dL (8.4-10.2); CREATININE, SERUM 1.91 mg/dL (0.72-1.25); POTASSIUM 3.3 mmol/L (3.5-5.1)
[2021-04-17] MEDS: BALSAM PERU/CASTOR OIL 60 GM OINT...G. TP SCH (08:08)
[2021-04-17] MEDS: ATORVASTATIN 40 MG TAB NG SCH (08:08)
[2021-04-17] MEDS: POLYETHYLENE GLYCOL 3350 17 GM PACK PO SCH (08:08)
[2021-04-17] MEDS: ASPIRIN 325 MG TAB PO SCH (08:08)
[2021-04-17] MEDS: MEROPENEM 1GM / NS 100ML 100 ML IV SCH ×2 (08:34→20:29)
[2021-04-17] MEDS ORDERED: POTASSIUM CHLORIDE 20 MEQ TAB CR PO ONE (11:10)
[2021-04-17] MEDS ORDERED: CALCIUM GLUCONATE 10% INJ 4.65 MEQ in SODIUM CHLORIDE 0.9% 50ML 50 ML IV ONE (11:15)
[2021-04-17] MEDS ORDERED: POTASSIUM CHLORIDE 20MEQ/15ML UDC NG ONE (11:30)
[2021-04-17] MEDS ORDERED: KCL 20 MEQ PACKET/ ORAL SOLN NG ONE (11:45)
[2021-04-17] MEDS: LACTATED RINGER'S 1,000 ML INJ SCH (14:01)
[2021-04-18] VITALS (25 sets, daily range): BP systolic 127–167; BP diastolic 92–118
[2021-04-18] MEDS: METOCLOPRAMIDE HCL 10 MG/2ML VIAL IV SCH ×4 (00:07→17:07)
[2021-04-18] MEDS: Pantoprazole IV 50 ML IV SCH ×5 (00:40→21:07)
[2021-04-18 04:53] LABS: BASOPHILS % 0.1 % (0.0-1.0); EOSINOPHILS # (AUTO) 0.1 (0.0-0.4); EOSINOPHILS % 0.6 % (0.0-6.0); HEMATOCRIT 29.1 % (38.2-49.6); HEMOGLOBIN 9.1 g/dL (14.0-18.0); LYMPHOCYTES % 23.5 % (18.0-39.1); MEAN CORPUSCULAR HEMOGLOBIN 26.4 pg (28-32); MEAN CORPUSCULAR HGB CONC 31.3 g/dL (31-35); MEAN CORPUSCULAR VOLUME 84.3 fL (81-99); MONOCYTES # (AUTO) 0.3 (0.2-0.8); MONOCYTES % 3.9 % (4.4-11.3); NEUTROPHILS % 71.3 % (38.7-80.0); PLATELET COUNT 285 x10e3/uL (140-360); RED BLOOD COUNT 3.45 x10e6/uL (4.3-5.7); RED CELL DISTRIBUTION WIDTH 13.9 % (11.7-14.4)
[2021-04-18 05:19] LABS: ALBUMIN 1.2 g/dL (3.5-5.0); ALBUMIN/GLOBULIN RATIO 0.3 (0.8-2.0); ANION GAP 11.5 mmol/L (8-16); CALCIUM 7.6 mg/dL (8.4-10.2); CREATININE, SERUM 1.7 mg/dL (0.72-1.25); POTASSIUM 3.5 mmol/L (3.5-5.1)
[2021-04-18] MEDS: LACTATED RINGER'S 1,000 ML INJ SCH ×2 (05:41→17:42)
[2021-04-18] MEDS: PROPOFOL IV EMULSION 50 ML IV SCH ×5 (07:58→22:00)
[2021-04-18] MEDS: BALSAM PERU/CASTOR OIL 60 GM OINT...G. TP SCH (08:01)
[2021-04-18] MEDS: POLYETHYLENE GLYCOL 3350 17 GM PACK PO SCH (08:01)
[2021-04-18] MEDS: ATORVASTATIN 40 MG TAB NG SCH (08:01)
[2021-04-18] MEDS: ASPIRIN 325 MG TAB PO SCH (08:01)
[2021-04-18] MEDS: LABETALOL HCL 5 MG/ML 20ML VIAL IV PRN (08:45)
[2021-04-18] MEDS: MEROPENEM 1GM / NS 100ML 100 ML IV SCH ×2 (08:46→21:10)
[2021-04-18] MEDS ORDERED: VECURONIUM BROMIDE FOR INJ 20 MG VIAL IV ONE (13:50)
[2021-04-18] MEDS ORDERED: ETOMIDATE 40 MG/ 20ML VIAL IV ONE (13:50)
[2021-04-18] MEDS ORDERED: WATER STERILE 10 ML VIAL IV ONE (13:52)
[2021-04-19] VITALS (28 sets, daily range): BP systolic 135–177; BP diastolic 96–125
[2021-04-19] MEDS: Pantoprazole IV 50 ML IV SCH ×5 (02:15→23:07)
[2021-04-19] MEDS: LABETALOL HCL 5 MG/ML 20ML VIAL IV PRN ×4 (02:25→17:05)
[2021-04-19 04:48] LABS: BASOPHILS % 0.1 % (0.0-1.0); EOSINOPHILS % 0.3 % (0.0-6.0); HEMATOCRIT 27.8 % (38.2-49.6); HEMOGLOBIN 8.7 g/dL (14.0-18.0); LYMPHOCYTES # (AUTO) 1.8 (1.0-3.2); LYMPHOCYTES % 16.6 % (18.0-39.1); MEAN CORPUSCULAR HEMOGLOBIN 26.7 pg (28-32); MEAN CORPUSCULAR HGB CONC 31.3 g/dL (31-35); MEAN CORPUSCULAR VOLUME 85.3 fL (81-99); MONOCYTES # (AUTO) 0.4 (0.2-0.8); MONOCYTES % 3.3 % (4.4-11.3); NEUTROPHILS # (AUTO) 8.5 (2.1-6.9); NEUTROPHILS % 79.3 % (38.7-80.0); PLATELET COUNT 254 x10e3/uL (140-360); RED BLOOD COUNT 3.26 x10e6/uL (4.3-5.7); RED CELL DISTRIBUTION WIDTH 13.8 % (11.7-14.4)
[2021-04-19 05:08] LABS: ALBUMIN 1.1 g/dL (3.5-5.0); ALBUMIN/GLOBULIN RATIO 0.3 (0.8-2.0); ANION GAP 12.2 mmol/L (8-16); CALCIUM 7.5 mg/dL (8.4-10.2); CREATININE, SERUM 1.53 mg/dL (0.72-1.25); POTASSIUM 3.2 mmol/L (3.5-5.1)
[2021-04-19] MEDS: METOCLOPRAMIDE HCL 10 MG/2ML VIAL IV SCH ×5 (05:32→23:07)
[2021-04-19] MEDS: PROPOFOL IV EMULSION 50 ML IV SCH ×6 (06:59→20:30)
[2021-04-19] MEDS: POLYETHYLENE GLYCOL 3350 17 GM PACK PO SCH (08:28)
[2021-04-19] MEDS: ASPIRIN 325 MG TAB PO SCH (08:28)
[2021-04-19] MEDS: BALSAM PERU/CASTOR OIL 60 GM OINT...G. TP SCH (08:28)
[2021-04-19] MEDS: ATORVASTATIN 40 MG TAB NG SCH (08:29)
[2021-04-19] MEDS: LACTATED RINGER'S 1,000 ML INJ SCH (08:30)
[2021-04-19] MEDS: MEROPENEM 1GM / NS 100ML 100 ML IV SCH ×2 (08:38→20:15)
[2021-04-19] MEDS ORDERED: BUPIVACAINE 0.5%/EPI 30 ML SDV INJ ONE (11:02)
[2021-04-19] MEDS ORDERED: POTASSIUM CHLORIDE 20MEQ/100ML 100 ML IV ONE (11:15)
[2021-04-19 11:35] LABS: ABG PCO2 31 mmHg (35-45)
[2021-04-19 11:36] LABS: ABG HCO3 25 mmol/L (22-26); ABG PO2 86 mmHg (80-105); ABG TCO2 26
[2021-04-19 11:53] LABS: FERRITIN 2386.19 ng/mL (21.81-274.66)
[2021-04-19] MEDS: DEXTROSE 5% 1,000 ML IV SCH (17:05)
[2021-04-19] MEDS: NICARDIPINE 20MG/200ML PREMIX 200 ML IV SCH (21:16)
[2021-04-20] VITALS (27 sets, daily range): BP systolic 121–154; BP diastolic 73–106
[2021-04-20] MEDS: PROPOFOL IV EMULSION 50 ML IV SCH ×8 (02:25→21:00)
[2021-04-20] MEDS: Pantoprazole IV 50 ML IV SCH ×4 (03:50→21:19)
[2021-04-20] MEDS: DEXTROSE 5% 1,000 ML IV SCH ×2 (03:50→15:35)
[2021-04-20 03:55] LABS: BASOPHILS % 0.2 % (0.0-1.0); EOSINOPHILS # (AUTO) 0.1 (0.0-0.4); EOSINOPHILS % 0.5 % (0.0-6.0); HEMATOCRIT 28.7 % (38.2-49.6); HEMOGLOBIN 8.9 g/dL (14.0-18.0); LYMPHOCYTES # (AUTO) 1.8 (1.0-3.2); LYMPHOCYTES % 19.6 % (18.0-39.1); MEAN CORPUSCULAR HEMOGLOBIN 26.9 pg (28-32); MEAN CORPUSCULAR VOLUME 86.7 fL (81-99); MONOCYTES # (AUTO) 0.4 (0.2-0.8); MONOCYTES % 3.8 % (4.4-11.3); NEUTROPHILS % 75.4 % (38.7-80.0); PLATELET COUNT 232 x10e3/uL (140-360); RED BLOOD COUNT 3.31 x10e6/uL (4.3-5.7); RED CELL DISTRIBUTION WIDTH 13.9 % (11.7-14.4)
[2021-04-20 04:04] LABS: INR 1.1; PROTHROMBIN TIME 14.8 seconds (11.9-14.5)
[2021-04-20 04:05] LABS: PARTIAL THROMBOPLASTIN TIME 39.9 seconds (23.8-35.5)
[2021-04-20 04:13] LABS: MAGNESIUM 1.8 MG/DL (1.3-2.1); PHOSPHORUS 3.7 MG/DL (2.3-4.7)
[2021-04-20 04:16] LABS: ALANINE AMINOTRANSFERASE 34 IU/L (0-55); ALBUMIN 1.2 g/dL (3.5-5.0); ALBUMIN/GLOBULIN RATIO 0.3 (0.8-2.0); ALKALINE PHOSPHATASE 101 IU/L (40-150); ANION GAP 11.2 mmol/L (8-16); BLOOD UREA NITROGEN 37 mg/dL (7-26); BUN/CREATININE RATIO 26 (6-25); CARBON DIOXIDE 23 mmol/L (22-29); CHLORIDE 118 mmol/L (98-107); EST GLOMERULAR FILTRATION RATE > 60 ML/MIN (60-); GLUCOSE 119 mg/dL (74-118); POTASSIUM 3.2 mmol/L (3.5-5.1); SODIUM 149 mmol/L (136-145)
[2021-04-20] MEDS: METOCLOPRAMIDE HCL 10 MG/2ML VIAL IV SCH ×3 (05:15→17:06)
[2021-04-20] MEDS: POTASSIUM CHLORIDE 20MEQ/100ML 100 ML IV SCH ×2 (05:15→08:10)
[2021-04-20] MEDS: ASPIRIN 325 MG TAB PO SCH (08:10)
[2021-04-20] MEDS: POLYETHYLENE GLYCOL 3350 17 GM PACK PO SCH (08:10)
[2021-04-20] MEDS: ATORVASTATIN 40 MG TAB NG SCH (08:10)
[2021-04-20] MEDS: BALSAM PERU/CASTOR OIL 60 GM OINT...G. TP SCH (08:11)
[2021-04-20] MEDS: NICARDIPINE 20MG/200ML PREMIX 200 ML IV SCH ×2 (11:02→18:58)
[2021-04-20 15:47] LABS: ANION GAP 14.6 mmol/L (8-16); BLOOD UREA NITROGEN 38 mg/dL (7-26); BUN/CREATININE RATIO 27 (6-25); CARBON DIOXIDE 20 mmol/L (22-29); CHLORIDE 117 mmol/L (98-107); CREATININE, SERUM 1.42 mg/dL (0.72-1.25); EST GLOMERULAR FILTRATION RATE > 60 ML/MIN (60-); GLUCOSE 117 mg/dL (74-118); POTASSIUM 3.6 mmol/L (3.5-5.1); SODIUM 148 mmol/L (136-145)
[2021-04-21] VITALS (30 sets, daily range): BP systolic 96–158; BP diastolic 74–119
[2021-04-21] MEDS: PROPOFOL IV EMULSION 50 ML IV SCH ×2 (01:00→05:00)
[2021-04-21] MEDS: METOCLOPRAMIDE HCL 10 MG/2ML VIAL IV SCH ×4 (01:00→15:52)
[2021-04-21] MEDS: Pantoprazole IV 50 ML IV SCH ×5 (03:03→19:54)
[2021-04-21 05:30] LABS: BASOPHILS % 0.2 % (0.0-1.0); EOSINOPHILS # (AUTO) 0.1 (0.0-0.4); EOSINOPHILS % 1.2 % (0.0-6.0); HEMATOCRIT 28.5 % (38.2-49.6); HEMOGLOBIN 8.6 g/dL (14.0-18.0); LYMPHOCYTES # (AUTO) 1.9 (1.0-3.2); LYMPHOCYTES % 22.7 % (18.0-39.1); MEAN CORPUSCULAR HEMOGLOBIN 26.3 pg (28-32); MEAN CORPUSCULAR HGB CONC 30.2 g/dL (31-35); MEAN CORPUSCULAR VOLUME 87.2 fL (81-99); MONOCYTES # (AUTO) 0.4 (0.2-0.8); MONOCYTES % 4.5 % (4.4-11.3); NEUTROPHILS # (AUTO) 5.9 (2.1-6.9); NEUTROPHILS % 70.8 % (38.7-80.0); PLATELET COUNT 219 x10e3/uL (140-360); RED BLOOD COUNT 3.27 x10e6/uL (4.3-5.7)
[2021-04-21 05:41] LABS: ANION GAP 13.4 mmol/L (8-16); CREATININE, SERUM 1.73 mg/dL (0.72-1.25); POTASSIUM 3.4 mmol/L (3.5-5.1)
[2021-04-21 05:43] LABS: CALCIUM 6.7 mg/dL (8.4-10.2)
[2021-04-21] MEDS ORDERED: NOREPINEPHRINE 8 MG/D5W 250 ML 250 ML ONE (07:01)
[2021-04-21] MEDS ORDERED: LACTATED RINGER'S 1,000 ML INJ ONE (07:30)
[2021-04-21] MEDS ORDERED: CALCIUM GLUCONATE 10% INJ 9.3 MEQ in SODIUM CHLORIDE 0.9% 100 ML 100 ML IV ONE (07:30)
[2021-04-21] MEDS: POLYETHYLENE GLYCOL 3350 17 GM PACK PO SCH (09:00)
[2021-04-21 09:02] LABS: ABG HCO3 23 mmol/L (22-26); ABG PCO2 33 mmHg (35-45); ABG PH 7.45 (7.35-7.45); ABG PO2 276 mmHg (80-105); ABG TCO2 23
[2021-04-21] MEDS: ATORVASTATIN 40 MG TAB NG SCH (10:44)
[2021-04-21] MEDS: BALSAM PERU/CASTOR OIL 60 GM OINT...G. TP SCH (10:44)
[2021-04-21] MEDS: DEXTROSE 5% 1,000 ML IV SCH ×2 (10:44→19:54)
[2021-04-21] MEDS: ASPIRIN 325 MG TAB PO SCH (10:44)
[2021-04-21] MEDS ORDERED: KCL 20 MEQ PACKET/ ORAL SOLN NG ONE (11:00)
[2021-04-21] MEDS: NOREPINEPHRINE 8 MG/D5W 250 ML 250 ML IV PRN (17:08)
[2021-04-21] MEDS: NICARDIPINE 20MG/200ML PREMIX 200 ML IV SCH (19:48)
[2021-04-22] VITALS (24 sets, daily range): BP systolic 91–139; BP diastolic 69–103
[2021-04-22] MEDS: METOCLOPRAMIDE HCL 10 MG/2ML VIAL IV SCH ×4 (00:54→15:12)
[2021-04-22] MEDS: Pantoprazole IV 50 ML IV SCH ×5 (01:10→21:14)
[2021-04-22] MEDS: PROPOFOL IV EMULSION 50 ML IV SCH (05:59)
[2021-04-22 06:19] LABS: BASOPHILS # (AUTO) 0.1 (0.0-0.1); BASOPHILS % 0.8 % (0.0-1.0); EOSINOPHILS # (AUTO) 0.2 (0.0-0.4); EOSINOPHILS % 2.3 % (0.0-6.0); HEMATOCRIT 23.8 % (38.2-49.6); HEMOGLOBIN 7.5 g/dL (14.0-18.0); LYMPHOCYTES # (AUTO) 2.6 (1.0-3.2); LYMPHOCYTES % 34.3 % (18.0-39.1); MEAN CORPUSCULAR HEMOGLOBIN 27.5 pg (28-32); MEAN CORPUSCULAR HGB CONC 31.5 g/dL (31-35); MEAN CORPUSCULAR VOLUME 87.2 fL (81-99); MONOCYTES # (AUTO) 0.3 (0.2-0.8); MONOCYTES % 4.4 % (4.4-11.3); NEUTROPHILS # (AUTO) 4.3 (2.1-6.9); NEUTROPHILS % 57.5 % (38.7-80.0); PLATELET COUNT 173 x10e3/uL (140-360); RED BLOOD COUNT 2.73 x10e6/uL (4.3-5.7); RED CELL DISTRIBUTION WIDTH 14.5 % (11.7-14.4)
[2021-04-22 06:37] LABS: ALBUMIN 0.9 g/dL (3.5-5.0); ALBUMIN/GLOBULIN RATIO 0.3 (0.8-2.0); ANION GAP 12.3 mmol/L (8-16); CREATININE, SERUM 2.02 mg/dL (0.72-1.25); POTASSIUM 3.3 mmol/L (3.5-5.1)
[2021-04-22 06:40] LABS: CALCIUM 6.5 mg/dL (8.4-10.2)
[2021-04-22] MEDS: ATORVASTATIN 40 MG TAB NG SCH (07:42)
[2021-04-22] MEDS: POLYETHYLENE GLYCOL 3350 17 GM PACK PO SCH (07:42)
[2021-04-22] MEDS: ASPIRIN 325 MG TAB PO SCH (07:42)
[2021-04-22] MEDS: BALSAM PERU/CASTOR OIL 60 GM OINT...G. TP SCH (07:43)
[2021-04-22] MEDS: DEXTROSE 5% 1,000 ML IV SCH ×2 (07:43→23:23)
[2021-04-22] MEDS ORDERED: EPINEPHRINE HCL SYRINGE ONE (12:55)
[2021-04-22] MEDS ORDERED: POTASSIUM CHLORIDE 20MEQ/100ML 100 ML IV ONE (13:00)
[2021-04-22] MEDS: NOREPINEPHRINE 8 MG/D5W 250 ML 250 ML IV PRN (15:13)
[2021-04-22] MEDS: NICARDIPINE 20MG/200ML PREMIX 200 ML IV SCH (20:44)
[2021-04-23] VITALS (26 sets, daily range): BP systolic 85–137; BP diastolic 63–103
[2021-04-23] MEDS: METOCLOPRAMIDE HCL 10 MG/2ML VIAL IV SCH ×4 (00:45→17:03)
[2021-04-23] MEDS: Pantoprazole IV 50 ML IV SCH ×5 (01:30→22:33)
[2021-04-23 05:28] LABS: BASOPHILS % 0.5 % (0.0-1.0); EOSINOPHILS # (AUTO) 0.1 (0.0-0.4); EOSINOPHILS % 1.5 % (0.0-6.0); HEMATOCRIT 23.1 % (38.2-49.6); HEMOGLOBIN 7.1 g/dL (14.0-18.0); LYMPHOCYTES # (AUTO) 2.7 (1.0-3.2); LYMPHOCYTES % 33.1 % (18.0-39.1); MEAN CORPUSCULAR HEMOGLOBIN 26.5 pg (28-32); MEAN CORPUSCULAR HGB CONC 30.7 g/dL (31-35); MEAN CORPUSCULAR VOLUME 86.2 fL (81-99); MONOCYTES # (AUTO) 0.4 (0.2-0.8); NEUTROPHILS # (AUTO) 4.9 (2.1-6.9); NEUTROPHILS % 59.3 % (38.7-80.0); PLATELET COUNT 159 x10e3/uL (140-360); RED BLOOD COUNT 2.68 x10e6/uL (4.3-5.7); RED CELL DISTRIBUTION WIDTH 14.2 % (11.7-14.4)
[2021-04-23 05:53] LABS: ALBUMIN 0.8 g/dL (3.5-5.0); ALBUMIN/GLOBULIN RATIO 0.2 (0.8-2.0); ANION GAP 11.1 mmol/L (8-16); CREATININE, SERUM 1.99 mg/dL (0.72-1.25); POTASSIUM 3.1 mmol/L (3.5-5.1)
[2021-04-23 05:59] LABS: CALCIUM 6.6 mg/dL (8.4-10.2)
[2021-04-23] MEDS: PROPOFOL IV EMULSION 50 ML IV SCH (07:30)
[2021-04-23] MEDS: POLYETHYLENE GLYCOL 3350 17 GM PACK PO SCH (07:55)
[2021-04-23] MEDS: ASPIRIN 325 MG TAB PO SCH (07:55)
[2021-04-23] MEDS: BALSAM PERU/CASTOR OIL 60 GM OINT...G. TP SCH (07:55)
[2021-04-23] MEDS: ATORVASTATIN 40 MG TAB NG SCH (07:55)
[2021-04-23 08:49] LABS: BAND NEUTROPHILS % (MANUAL) 2 %; EOSINOPHILS % (MANUAL) 1 % (0-7); MONOCYTES % (MANUAL) 6 % (3.4-9.0); NEUTROPHILS % (MANUAL) 91 % (40-74)
[2021-04-23] MEDS ORDERED: POTASSIUM CHLORIDE 10MEQ EA PO ONE ×2 (09:00→11:00)
[2021-04-23] MEDS: KCL 20 MEQ PACKET/ ORAL SOLN PO SCH ×3 (11:10→14:11)
[2021-04-23] MEDS: NOREPINEPHRINE 8 MG/D5W 250 ML 250 ML IV PRN ×2 (11:41→22:45)
[2021-04-23] MEDS: DEXTROSE 5% 1,000 ML IV SCH (14:12)
[2021-04-23] MEDS ORDERED: SODIUM CHLORIDE 0.9% 250ML 250 ML ONE (16:44)
[2021-04-23] MEDS: NICARDIPINE 20MG/200ML PREMIX 200 ML IV SCH (20:15)
[2021-04-24] VITALS (40 sets, daily range): BP systolic 72–133; BP diastolic 53–107
[2021-04-24] MEDS: DEXTROSE 5% 1,000 ML IV SCH ×2 (02:00→15:18)
[2021-04-24] MEDS: Pantoprazole IV 50 ML IV SCH ×5 (03:17→22:20)
[2021-04-24 04:45] LABS: BASOPHILS # (AUTO) 0.1 (0.0-0.1); BASOPHILS % 0.4 % (0.0-1.0); EOSINOPHILS # (AUTO) 0.1 (0.0-0.4); EOSINOPHILS % 0.9 % (0.0-6.0); HEMATOCRIT 27.4 % (38.2-49.6); HEMOGLOBIN 8.6 g/dL (14.0-18.0); LYMPHOCYTES # (AUTO) 3.2 (1.0-3.2); LYMPHOCYTES % 25.9 % (18.0-39.1); MEAN CORPUSCULAR HGB CONC 31.4 g/dL (31-35); MEAN CORPUSCULAR VOLUME 86.2 fL (81-99); MONOCYTES # (AUTO) 0.5 (0.2-0.8); MONOCYTES % 4.3 % (4.4-11.3); NEUTROPHILS # (AUTO) 8.3 (2.1-6.9); NEUTROPHILS % 67.7 % (38.7-80.0); PLATELET COUNT 173 x10e3/uL (140-360); RED BLOOD COUNT 3.18 x10e6/uL (4.3-5.7); RED CELL DISTRIBUTION WIDTH 13.9 % (11.7-14.4)
[2021-04-24 05:27] LABS: ALBUMIN 0.9 g/dL (3.5-5.0); ALBUMIN/GLOBULIN RATIO 0.2 (0.8-2.0); ANION GAP 11.9 mmol/L (8-16); CREATININE, SERUM 2.17 mg/dL (0.72-1.25); POTASSIUM 3.9 mmol/L (3.5-5.1)
[2021-04-24 05:30] LABS: CALCIUM 6.5 mg/dL (8.4-10.2)
[2021-04-24] MEDS: METOCLOPRAMIDE HCL 10 MG/2ML VIAL IV SCH ×4 (05:47→17:29)
[2021-04-24] MEDS: PROPOFOL IV EMULSION 50 ML IV SCH (05:50)
[2021-04-24] MEDS: POLYETHYLENE GLYCOL 3350 17 GM PACK PO SCH (09:00)
[2021-04-24] MEDS: ASPIRIN 325 MG TAB PO SCH (09:14)
[2021-04-24] MEDS: BALSAM PERU/CASTOR OIL 60 GM OINT...G. TP SCH (09:14)
[2021-04-24] MEDS: ATORVASTATIN 40 MG TAB NG SCH (09:14)
[2021-04-24] MEDS: NOREPINEPHRINE 8 MG/D5W 250 ML 250 ML IV PRN (11:28)
[2021-04-24 11:46] LABS: ABG HCO3 21 mmol/L (22-26); ABG PCO2 29 mmHg (35-45); ABG PH 7.47 (7.35-7.45); ABG PO2 93 mmHg (80-105); ABG TCO2 22
[2021-04-24] MEDS ORDERED: CALCIUM GLUCONATE 10% INJ 4.65 MEQ in SODIUM CHLORIDE 0.9% 50ML 50 ML IV ONE (14:00)
[2021-04-24] MEDS: LACTATED RINGER'S 1,000 ML INJ SCH (16:57)
[2021-04-25] VITALS (32 sets, daily range): BP systolic 80–124; BP diastolic 61–105
[2021-04-25] MEDS: METOCLOPRAMIDE HCL 10 MG/2ML VIAL IV SCH ×5 (00:12→23:36)
[2021-04-25] MEDS: Pantoprazole IV 50 ML IV SCH ×4 (03:07→18:11)
[2021-04-25] MEDS: DEXTROSE 50% SYRINGE 50 ML IV PRN ×3 (03:08→12:55)
[2021-04-25] MEDS: LACTATED RINGER'S 1,000 ML INJ SCH (04:54)
[2021-04-25 04:55] LABS: BASOPHILS # (AUTO) 0.1 (0.0-0.1); BASOPHILS % 0.5 % (0.0-1.0); EOSINOPHILS # (AUTO) 0.1 (0.0-0.4); EOSINOPHILS % 0.7 % (0.0-6.0); HEMATOCRIT 24.3 % (38.2-49.6); HEMOGLOBIN 7.7 g/dL (14.0-18.0); LYMPHOCYTES # (AUTO) 2.5 (1.0-3.2); LYMPHOCYTES % 25.3 % (18.0-39.1); MEAN CORPUSCULAR HGB CONC 31.7 g/dL (31-35); MEAN CORPUSCULAR VOLUME 85.3 fL (81-99); MONOCYTES # (AUTO) 0.4 (0.2-0.8); MONOCYTES % 4.4 % (4.4-11.3); NEUTROPHILS # (AUTO) 6.7 (2.1-6.9); NEUTROPHILS % 68.5 % (38.7-80.0); PLATELET COUNT 180 x10e3/uL (140-360); RED BLOOD COUNT 2.85 x10e6/uL (4.3-5.7); RED CELL DISTRIBUTION WIDTH 13.8 % (11.7-14.4)
[2021-04-25 05:20] LABS: ALBUMIN 0.8 g/dL (3.5-5.0); ALBUMIN/GLOBULIN RATIO 0.2 (0.8-2.0); ANION GAP 11.9 mmol/L (8-16); CREATININE, SERUM 2.53 mg/dL (0.72-1.25); POTASSIUM 3.9 mmol/L (3.5-5.1)
[2021-04-25 05:37] LABS: CALCIUM 6.6 mg/dL (8.4-10.2)
[2021-04-25 06:28] LABS: LYMPHOCYTES % (MANUAL) 23 % (19-48); MONOCYTES % (MANUAL) 4 % (3.4-9.0); NEUTROPHILS % (MANUAL) 72 % (40-74); PLATELET ESTIMATE ADEQUATE; PLATELET MORPHOLOGY COMMENT NORMAL; RBC MORPHOLOGY COMMENT NORMAL
[2021-04-25] MEDS: POLYETHYLENE GLYCOL 3350 17 GM PACK PO SCH (08:13)
[2021-04-25] MEDS: ASPIRIN 325 MG TAB PO SCH (09:00)
[2021-04-25] MEDS: ATORVASTATIN 40 MG TAB NG SCH (09:00)
[2021-04-25] MEDS: BALSAM PERU/CASTOR OIL 60 GM OINT...G. TP SCH (09:59)
[2021-04-25] MEDS ORDERED: CALCIUM CHLORIDE 13.6 MEQ in SODIUM CHLORIDE 0.9% 100 ML 100 ML IV ONE ×4 (14:15)
[2021-04-25] MEDS ORDERED: BUPIVACAINE 0.25% 30ML SDV ONE (14:37)
[2021-04-25] MEDS ORDERED: LIDOCAINE 1% W/EPINEPHRINE 20 ML VIAL ONE (14:37)
[2021-04-25] MEDS: DEXTROSE 5%/LACTATED RINGERS 1,000 ML IV SCH (15:34)
[2021-04-25 17:35] LABS: ABG HCO3 21 mmol/L (22-26); ABG PCO2 32 mmHg (35-45); ABG PH 7.43 (7.35-7.45); ABG PO2 119 mmHg (80-105); ABG TCO2 22
[2021-04-26] VITALS (16 sets, daily range): BP systolic 84–123; BP diastolic 62–86
[2021-04-26] MEDS: Pantoprazole IV 50 ML IV SCH ×5 (00:15→21:34)
[2021-04-26] MEDS: DEXTROSE 5%/LACTATED RINGERS 1,000 ML IV SCH ×3 (03:20→23:05)
[2021-04-26] MEDS: NOREPINEPHRINE 8 MG/D5W 250 ML 250 ML IV PRN ×2 (03:44→23:57)
[2021-04-26 04:58] LABS: BASOPHILS % 0.4 % (0.0-1.0); EOSINOPHILS # (AUTO) 0.1 (0.0-0.4); EOSINOPHILS % 1.1 % (0.0-6.0); HEMATOCRIT 23.9 % (38.2-49.6); HEMOGLOBIN 7.4 g/dL (14.0-18.0); LYMPHOCYTES % 28.4 % (18.0-39.1); MEAN CORPUSCULAR HEMOGLOBIN 27.1 pg (28-32); MEAN CORPUSCULAR VOLUME 87.5 fL (81-99); MONOCYTES # (AUTO) 0.3 (0.2-0.8); MONOCYTES % 3.6 % (4.4-11.3); NEUTROPHILS # (AUTO) 4.6 (2.1-6.9); NEUTROPHILS % 65.9 % (38.7-80.0); PLATELET COUNT 165 x10e3/uL (140-360); RED BLOOD COUNT 2.73 x10e6/uL (4.3-5.7); RED CELL DISTRIBUTION WIDTH 14.2 % (11.7-14.4)
[2021-04-26 05:23] LABS: ALBUMIN 0.8 g/dL (3.5-5.0); ALBUMIN/GLOBULIN RATIO 0.2 (0.8-2.0); ANION GAP 11.9 mmol/L (8-16); CREATININE, SERUM 2.97 mg/dL (0.72-1.25); POTASSIUM 3.9 mmol/L (3.5-5.1)
[2021-04-26 05:26] LABS: CALCIUM 6.8 mg/dL (8.4-10.2)
[2021-04-26] MEDS: METOCLOPRAMIDE HCL 10 MG/2ML VIAL IV SCH ×3 (06:10→17:11)
[2021-04-26 06:25] LABS: BAND NEUTROPHILS % (MANUAL) 1 %; LYMPHOCYTES % (MANUAL) 25 % (19-48); MONOCYTES % (MANUAL) 5 % (3.4-9.0); NEUTROPHILS % (MANUAL) 67 % (40-74); NUCLEATED RED BLOOD CELLS 1; SMUDGE CELLS FEW
[2021-04-26 06:27] LABS: PLATELET ESTIMATE ADEQUATE; PLATELET MORPHOLOGY COMMENT NORMAL
[2021-04-26] MEDS: ASPIRIN 325 MG TAB PO SCH (08:45)
[2021-04-26] MEDS: BALSAM PERU/CASTOR OIL 60 GM OINT...G. TP SCH (08:45)
[2021-04-26] MEDS: ATORVASTATIN 40 MG TAB NG SCH (08:45)
[2021-04-26] MEDS: POLYETHYLENE GLYCOL 3350 17 GM PACK PO SCH (08:45)
[2021-04-26 12:32] LABS: ABG HCO3 23 mmol/L (22-26); ABG PCO2 50 mmHg (35-45); ABG PH 7.28 (7.35-7.45); ABG PO2 165 mmHg (80-105); ABG TCO2 25
[2021-04-27] VITALS (16 sets, daily range): BP systolic 102–140; BP diastolic 71–93
[2021-04-27] MEDS: Pantoprazole IV 50 ML IV SCH ×4 (03:08→18:44)
[2021-04-27 05:05] LABS: BASOPHILS % 0.5 % (0.0-1.0); EOSINOPHILS # (AUTO) 0.1 (0.0-0.4); EOSINOPHILS % 1.5 % (0.0-6.0); HEMATOCRIT 24.7 % (38.2-49.6); HEMOGLOBIN 7.7 g/dL (14.0-18.0); LYMPHOCYTES # (AUTO) 2.1 (1.0-3.2); LYMPHOCYTES % 31.3 % (18.0-39.1); MEAN CORPUSCULAR HEMOGLOBIN 27.8 pg (28-32); MEAN CORPUSCULAR HGB CONC 31.2 g/dL (31-35); MEAN CORPUSCULAR VOLUME 89.2 fL (81-99); MONOCYTES # (AUTO) 0.2 (0.2-0.8); MONOCYTES % 3.3 % (4.4-11.3); NEUTROPHILS # (AUTO) 4.2 (2.1-6.9); NEUTROPHILS % 62.8 % (38.7-80.0); PLATELET COUNT 147 x10e3/uL (140-360); RED BLOOD COUNT 2.77 x10e6/uL (4.3-5.7); RED CELL DISTRIBUTION WIDTH 14.5 % (11.7-14.4)
[2021-04-27 05:12] LABS: ANION GAP 10.2 mmol/L (8-16); CREATININE, SERUM 3.28 mg/dL (0.72-1.25); POTASSIUM 4.2 mmol/L (3.5-5.1)
[2021-04-27 05:14] LABS: CALCIUM 6.8 mg/dL (8.4-10.2)
[2021-04-27] MEDS: METOCLOPRAMIDE HCL 10 MG/2ML VIAL IV SCH ×4 (06:12→18:44)
[2021-04-27 07:39] LABS: EOSINOPHILS % (MANUAL) 1 % (0-7); LYMPHOCYTES % (MANUAL) 29 % (19-48); MONOCYTES % (MANUAL) 4 % (3.4-9.0); NEUTROPHILS % (MANUAL) 66 % (40-74); PLATELET ESTIMATE ADEQUATE; PLATELET MORPHOLOGY COMMENT NORMAL; RBC MORPHOLOGY COMMENT NORMAL
[2021-04-27] MEDS: ATORVASTATIN 40 MG TAB NG SCH (08:35)
[2021-04-27] MEDS: POLYETHYLENE GLYCOL 3350 17 GM PACK PO SCH (08:35)
[2021-04-27] MEDS: ASPIRIN 325 MG TAB PO SCH (08:35)
[2021-04-27] MEDS: BALSAM PERU/CASTOR OIL 60 GM OINT...G. TP SCH (08:35)
[2021-04-27] MEDS: DEXTROSE 5%/LACTATED RINGERS 1,000 ML IV SCH ×2 (08:59→18:44)
[2021-04-27] MEDS ORDERED: ARTIFICIAL TEARS (OPTH) 15 ML BTL OU PRN (12:15)
[2021-04-27] MEDS ORDERED: HEPARIN SOD (PORCINE) 5,000 UNIT/ML VIAL SC SCH (14:00)
[2021-04-27] MEDS: HEPARIN SOD (PORCINE) 5,000 UNIT/ML VIAL SC SCH (22:29)
[2021-04-28] VITALS (25 sets, daily range): BP systolic 92–125; BP diastolic 66–90
[2021-04-28] MEDS: Pantoprazole IV 50 ML IV SCH ×6 (00:44→20:06)
[2021-04-28] MEDS: METOCLOPRAMIDE HCL 10 MG/2ML VIAL IV SCH ×4 (00:44→17:00)
[2021-04-28] MEDS: NOREPINEPHRINE 8 MG/D5W 250 ML 250 ML IV PRN ×2 (04:38→20:17)
[2021-04-28] MEDS: DEXTROSE 5%/LACTATED RINGERS 1,000 ML IV SCH ×2 (04:38→14:16)
[2021-04-28 05:00] LABS: BASOPHILS % 0.4 % (0.0-1.0); EOSINOPHILS # (AUTO) 0.1 (0.0-0.4); EOSINOPHILS % 1.7 % (0.0-6.0); HEMATOCRIT 24.4 % (38.2-49.6); HEMOGLOBIN 7.5 g/dL (14.0-18.0); LYMPHOCYTES # (AUTO) 1.8 (1.0-3.2); LYMPHOCYTES % 33.1 % (18.0-39.1); MEAN CORPUSCULAR HEMOGLOBIN 27.1 pg (28-32); MEAN CORPUSCULAR HGB CONC 30.7 g/dL (31-35); MEAN CORPUSCULAR VOLUME 88.1 fL (81-99); MONOCYTES # (AUTO) 0.2 (0.2-0.8); MONOCYTES % 3.9 % (4.4-11.3); NEUTROPHILS # (AUTO) 3.2 (2.1-6.9); NEUTROPHILS % 60.3 % (38.7-80.0); PLATELET COUNT 150 x10e3/uL (140-360); RED BLOOD COUNT 2.77 x10e6/uL (4.3-5.7); RED CELL DISTRIBUTION WIDTH 14.1 % (11.7-14.4)
[2021-04-28 05:17] LABS: ALBUMIN 0.7 g/dL (3.5-5.0); ALBUMIN/GLOBULIN RATIO 0.2 (0.8-2.0); ANION GAP 12.1 mmol/L (8-16); CREATININE, SERUM 3.42 mg/dL (0.72-1.25); POTASSIUM 4.1 mmol/L (3.5-5.1)
[2021-04-28 05:24] LABS: CALCIUM 6.8 mg/dL (8.4-10.2)
[2021-04-28] MEDS: HEPARIN SOD (PORCINE) 5,000 UNIT/ML VIAL SC SCH ×3 (05:52→20:08)
[2021-04-28 07:56] LABS: BAND NEUTROPHILS % (MANUAL) 2 %; EOSINOPHILS % (MANUAL) 2 % (0-7); LYMPHOCYTES % (MANUAL) 20 % (19-48); METAMYELOCYTES % (MANUAL) 4 % (0-0); MONOCYTES % (MANUAL) 1 % (3.4-9.0); NEUTROPHILS % (MANUAL) 71 % (40-74)
[2021-04-28] MEDS: BALSAM PERU/CASTOR OIL 60 GM OINT...G. TP SCH (08:36)
[2021-04-28] MEDS: POLYETHYLENE GLYCOL 3350 17 GM PACK PO SCH (09:40)
[2021-04-28] MEDS: ATORVASTATIN 40 MG TAB NG SCH (09:40)
[2021-04-28] MEDS: ASPIRIN 325 MG TAB PO SCH (09:40)
[2021-04-29] VITALS (25 sets, daily range): BP systolic 78–141; BP diastolic 56–103
[2021-04-29] MEDS: METOCLOPRAMIDE HCL 10 MG/2ML VIAL IV SCH ×4 (00:09→17:49)
[2021-04-29] MEDS: DEXTROSE 5%/LACTATED RINGERS 1,000 ML IV SCH ×3 (00:09→19:48)
[2021-04-29] MEDS: Pantoprazole IV 50 ML IV SCH ×5 (00:10→20:38)
[2021-04-29] MEDS: HEPARIN SOD (PORCINE) 5,000 UNIT/ML VIAL SC SCH ×3 (04:54→20:38)
[2021-04-29 05:15] LABS: BASOPHILS % 0.2 % (0.0-1.0); EOSINOPHILS # (AUTO) 0.1 (0.0-0.4); EOSINOPHILS % 2.4 % (0.0-6.0); HEMATOCRIT 23.5 % (38.2-49.6); HEMOGLOBIN 7.2 g/dL (14.0-18.0); LYMPHOCYTES # (AUTO) 1.7 (1.0-3.2); LYMPHOCYTES % 41.2 % (18.0-39.1); MEAN CORPUSCULAR HEMOGLOBIN 27.2 pg (28-32); MEAN CORPUSCULAR HGB CONC 30.6 g/dL (31-35); MEAN CORPUSCULAR VOLUME 88.7 fL (81-99); MONOCYTES # (AUTO) 0.2 (0.2-0.8); NEUTROPHILS # (AUTO) 2.2 (2.1-6.9); NEUTROPHILS % 51.5 % (38.7-80.0); PLATELET COUNT 142 x10e3/uL (140-360); RED BLOOD COUNT 2.65 x10e6/uL (4.3-5.7); RED CELL DISTRIBUTION WIDTH 14.3 % (11.7-14.4)
[2021-04-29 05:31] LABS: ANION GAP 10.1 mmol/L (8-16); CREATININE, SERUM 3.66 mg/dL (0.72-1.25); POTASSIUM 4.1 mmol/L (3.5-5.1)
[2021-04-29 05:39] LABS: CALCIUM 6.6 mg/dL (8.4-10.2)
[2021-04-29] MEDS: POLYETHYLENE GLYCOL 3350 17 GM PACK PO SCH (08:41)
[2021-04-29] MEDS: ASPIRIN 325 MG TAB PO SCH (08:41)
[2021-04-29] MEDS: BALSAM PERU/CASTOR OIL 60 GM OINT...G. TP SCH (08:41)
[2021-04-29] MEDS: ATORVASTATIN 40 MG TAB NG SCH (08:41)
[2021-04-29 11:52] LABS: BAND NEUTROPHILS % (MANUAL) 3 %; EOSINOPHILS % (MANUAL) 2 % (0-7); LYMPHOCYTES % (MANUAL) 39 % (19-48); MONOCYTES % (MANUAL) 3 % (3.4-9.0); NEUTROPHILS % (MANUAL) 53 % (40-74)
[2021-04-29 16:20] LABS: ABG HCO3 23 mmol/L (22-26); ABG PCO2 39 mmHg (35-45); ABG PH 7.38 (7.35-7.45); ABG PO2 171 mmHg (80-105); ABG TCO2 24
[2021-04-30] VITALS (25 sets, daily range): BP systolic 87–142; BP diastolic 52–99
[2021-04-30] MEDS: METOCLOPRAMIDE HCL 10 MG/2ML VIAL IV SCH ×5 (00:05→23:40)
[2021-04-30] MEDS: Pantoprazole IV 50 ML IV SCH ×5 (02:29→23:40)
[2021-04-30] MEDS: DEXTROSE 5%/LACTATED RINGERS 1,000 ML IV SCH ×2 (05:30→12:54)
[2021-04-30] MEDS: HEPARIN SOD (PORCINE) 5,000 UNIT/ML VIAL SC SCH (05:32)
[2021-04-30 06:38] LABS: BASOPHILS % 0.4 % (0.0-1.0); EOSINOPHILS # (AUTO) 0.1 (0.0-0.4); EOSINOPHILS % 1.7 % (0.0-6.0); LYMPHOCYTES # (AUTO) 1.7 (1.0-3.2); LYMPHOCYTES % 35.8 % (18.0-39.1); MEAN CORPUSCULAR HEMOGLOBIN 26.9 pg (28-32); MEAN CORPUSCULAR HGB CONC 30.4 g/dL (31-35); MEAN CORPUSCULAR VOLUME 88.5 fL (81-99); MONOCYTES # (AUTO) 0.2 (0.2-0.8); MONOCYTES % 3.6 % (4.4-11.3); NEUTROPHILS # (AUTO) 2.7 (2.1-6.9); NEUTROPHILS % 58.1 % (38.7-80.0); PLATELET COUNT 117 x10e3/uL (140-360); RED CELL DISTRIBUTION WIDTH 14.4 % (11.7-14.4)
[2021-04-30 07:07] LABS: ALBUMIN 0.7 g/dL (3.5-5.0); ALBUMIN/GLOBULIN RATIO 0.2 (0.8-2.0); ANION GAP 11.1 mmol/L (8-16); CREATININE, SERUM 4.19 mg/dL (0.72-1.25); POTASSIUM 4.1 mmol/L (3.5-5.1)
[2021-04-30 07:10] LABS: CALCIUM 6.5 mg/dL (8.4-10.2)
[2021-04-30] MEDS: BALSAM PERU/CASTOR OIL 60 GM OINT...G. TP SCH (08:11)
[2021-04-30] MEDS ORDERED: SODIUM CHLORIDE 0.9% 250ML 250 ML IV ONE (10:15)
[2021-04-30] MEDS ORDERED: SODIUM CHLORIDE 0.9% 250ML 250 ML ONE (17:10)
[2021-04-30 17:52] LABS: INR 1.38; PROTHROMBIN TIME 17.6 seconds (11.9-14.5)
[2021-05-01] VITALS (17 sets, daily range): BP systolic 80–138; BP diastolic 57–101
[2021-05-01] MEDS: DEXTROSE 5%/LACTATED RINGERS 1,000 ML IV SCH ×3 (00:03→23:18)
[2021-05-01 04:17] LABS: HEMATOCRIT 26.6 % (38.2-49.6); HEMOGLOBIN 8.2 g/dL (14.0-18.0); MEAN CORPUSCULAR HGB CONC 30.8 g/dL (31-35); MEAN CORPUSCULAR VOLUME 87.5 fL (81-99); PLATELET COUNT 108 x10e3/uL (140-360); RED BLOOD COUNT 3.04 x10e6/uL (4.3-5.7); RED CELL DISTRIBUTION WIDTH 14.6 % (11.7-14.4)
[2021-05-01 04:34] LABS: ALBUMIN 0.7 g/dL (3.5-5.0); ALBUMIN/GLOBULIN RATIO 0.2 (0.8-2.0); ANION GAP 12.1 mmol/L (8-16); CREATININE, SERUM 4.12 mg/dL (0.72-1.25); POTASSIUM 4.1 mmol/L (3.5-5.1)
[2021-05-01 04:44] LABS: CALCIUM 6.5 mg/dL (8.4-10.2)
[2021-05-01] MEDS: Pantoprazole IV 50 ML IV SCH ×4 (04:45→19:53)
[2021-05-01] MEDS: METOCLOPRAMIDE HCL 10 MG/2ML VIAL IV SCH ×3 (04:46→17:37)
[2021-05-01] MEDS: BALSAM PERU/CASTOR OIL 60 GM OINT...G. TP SCH (07:34)
[2021-05-01] MEDS ORDERED: CALCIUM GLUCONATE 10% INJ 9.3 MEQ in SODIUM CHLORIDE 0.9% 100 ML 100 ML IV ONE (10:30)
[2021-05-01] MEDS ORDERED: FUROSEMIDE INJ 10 MG/ML 4 ML VIAL IV ONE (11:00)
[2021-05-02] VITALS (15 sets, daily range): BP systolic 76–99; BP diastolic 54–73
[2021-05-02] MEDS: Pantoprazole IV 50 ML IV SCH ×5 (01:00→21:34)
[2021-05-02 04:52] LABS: BASOPHILS % 0.6 % (0.0-1.0); EOSINOPHILS # (AUTO) 0.1 (0.0-0.4); EOSINOPHILS % 1.9 % (0.0-6.0); HEMOGLOBIN 7.6 g/dL (14.0-18.0); LYMPHOCYTES # (AUTO) 1.7 (1.0-3.2); LYMPHOCYTES % 33.3 % (18.0-39.1); MEAN CORPUSCULAR HEMOGLOBIN 26.8 pg (28-32); MEAN CORPUSCULAR HGB CONC 30.4 g/dL (31-35); MONOCYTES # (AUTO) 0.1 (0.2-0.8); MONOCYTES % 2.7 % (4.4-11.3); NEUTROPHILS # (AUTO) 3.1 (2.1-6.9); NEUTROPHILS % 60.7 % (38.7-80.0); PLATELET COUNT 90 x10e3/uL (140-360); RED BLOOD COUNT 2.84 x10e6/uL (4.3-5.7); RED CELL DISTRIBUTION WIDTH 14.6 % (11.7-14.4)
[2021-05-02 05:11] LABS: ALBUMIN 0.7 g/dL (3.5-5.0); ALBUMIN/GLOBULIN RATIO 0.2 (0.8-2.0); ALKALINE PHOSPHATASE 177 IU/L (40-150); ANION GAP 11.9 mmol/L (8-16); BLOOD UREA NITROGEN 44 mg/dL (7-26); BUN/CREATININE RATIO 10 (6-25); CARBON DIOXIDE 22 mmol/L (22-29); CHLORIDE 117 mmol/L (98-107); CREATININE, SERUM 4.39 mg/dL (0.72-1.25); EST GLOMERULAR FILTRATION RATE 17 ML/MIN (60-); GLUCOSE 74 mg/dL (74-118); POTASSIUM 3.9 mmol/L (3.5-5.1); SODIUM 147 mmol/L (136-145)
[2021-05-02 05:12] LABS: ALANINE AMINOTRANSFERASE < 6 IU/L (0-55); CALCIUM 6.6 mg/dL (8.4-10.2)
[2021-05-02 06:56] LABS: BAND NEUTROPHILS % (MANUAL) 1 %; EOSINOPHILS % (MANUAL) 2 % (0-7); LYMPHOCYTES % (MANUAL) 30 % (19-48); MONOCYTES % (MANUAL) 1 % (3.4-9.0); NEUTROPHILS % (MANUAL) 66 % (40-74)
[2021-05-02 06:57] LABS: PLATELET ESTIMATE SLIGHTLY DECREASED; PLATELET MORPHOLOGY COMMENT NORMAL
[2021-05-02 06:58] LABS: OVALOCYTES FEW
[2021-05-02 06:59] LABS: BURR CELLS SLIGHT; RBC MORPHOLOGY COMMENT ABNORMAL
[2021-05-02] MEDS: METOCLOPRAMIDE HCL 10 MG/2ML VIAL IV SCH ×4 (08:21→17:32)
[2021-05-02] MEDS: BALSAM PERU/CASTOR OIL 60 GM OINT...G. TP SCH (08:56)
[2021-05-02] MEDS: DEXTROSE 5%/LACTATED RINGERS 1,000 ML IV SCH (08:56)
[2021-05-02] MEDS ORDERED: CALCIUM CHLORIDE 13.6 MEQ in SODIUM CHLORIDE 0.9% 100 ML 100 ML IV ONE (14:25)
[2021-05-02] MEDS: DEXTROSE 5% 1,000 ML IV SCH (15:09)
[2021-05-03] VITALS (26 sets, daily range): BP systolic 78–118; BP diastolic 49–88
[2021-05-03] MEDS: Pantoprazole IV 50 ML IV SCH ×3 (02:37→12:02)
[2021-05-03] MEDS: METOCLOPRAMIDE HCL 10 MG/2ML VIAL IV SCH ×4 (02:40→17:14)
[2021-05-03] MEDS: DEXTROSE 5% 1,000 ML IV SCH ×3 (02:40→19:37)
[2021-05-03 05:38] LABS: BASOPHILS # (AUTO) 0.1 (0.0-0.1); BASOPHILS % 1.1 % (0.0-1.0); EOSINOPHILS # (AUTO) 0.1 (0.0-0.4); EOSINOPHILS % 1.2 % (0.0-6.0); HEMATOCRIT 25.5 % (38.2-49.6); HEMOGLOBIN 7.7 g/dL (14.0-18.0); LYMPHOCYTES # (AUTO) 1.8 (1.0-3.2); LYMPHOCYTES % 27.4 % (18.0-39.1); MEAN CORPUSCULAR HGB CONC 30.2 g/dL (31-35); MEAN CORPUSCULAR VOLUME 89.5 fL (81-99); MONOCYTES # (AUTO) 0.2 (0.2-0.8); MONOCYTES % 2.5 % (4.4-11.3); NEUTROPHILS # (AUTO) 4.3 (2.1-6.9); NEUTROPHILS % 66.9 % (38.7-80.0); PLATELET COUNT 82 x10e3/uL (140-360); RED BLOOD COUNT 2.85 x10e6/uL (4.3-5.7); RED CELL DISTRIBUTION WIDTH 14.6 % (11.7-14.4)
[2021-05-03] MEDS: NOREPINEPHRINE 8 MG/D5W 250 ML 250 ML IV PRN (05:38)
[2021-05-03 06:02] LABS: ANION GAP 11.8 mmol/L (8-16); CREATININE, SERUM 4.48 mg/dL (0.72-1.25); POTASSIUM 3.8 mmol/L (3.5-5.1)
[2021-05-03 06:31] LABS: CALCIUM 6.5 mg/dL (8.4-10.2)
[2021-05-03] MEDS ORDERED: KCL 20 MEQ PACKET/ ORAL SOLN ONE (06:49)
[2021-05-03] MEDS: BALSAM PERU/CASTOR OIL 60 GM OINT...G. TP SCH (08:02)
[2021-05-03 08:39] LABS: BAND NEUTROPHILS % (MANUAL) 1 %; EOSINOPHILS % (MANUAL) 4 % (0-7); LYMPHOCYTES % (MANUAL) 31 % (19-48); MONOCYTES % (MANUAL) 2 % (3.4-9.0); NEUTROPHILS % (MANUAL) 61 % (40-74)
[2021-05-03 08:40] LABS: ANISOCYTOSIS SLIGHT; HYPOCHROMASIA SLIGHT; PLATELET ESTIMATE MODERATELY DECREASED; PLATELET MORPHOLOGY COMMENT NORMAL; RBC MORPHOLOGY COMMENT NORMAL
[2021-05-03 09:18] LABS: ABG HCO3 22 mmol/L (22-26); ABG PCO2 41 mmHg (35-45); ABG PH 7.34 (7.35-7.45); ABG PO2 78 mmHg (80-105)
[2021-05-03 09:19] LABS: ABG TCO2 23
[2021-05-03] MEDS: Pantoprazole IV 40 MG in SODIUM CHLORIDE 0.9% 50ML 50 ML IV SCH ×3 (12:16→21:45)
[2021-05-04] VITALS (24 sets, daily range): BP systolic 75–104; BP diastolic 50–73
[2021-05-04] MEDS: METOCLOPRAMIDE HCL 10 MG/2ML VIAL IV SCH ×4 (00:01→17:18)
[2021-05-04] MEDS: Pantoprazole IV 40 MG in SODIUM CHLORIDE 0.9% 50ML 50 ML IV SCH ×6 (03:23→21:47)
[2021-05-04 05:47] LABS: BASOPHILS # (AUTO) 0.1 (0.0-0.1); BASOPHILS % 0.8 % (0.0-1.0); EOSINOPHILS # (AUTO) 0.1 (0.0-0.4); EOSINOPHILS % 1.1 % (0.0-6.0); HEMATOCRIT 24.2 % (38.2-49.6); HEMOGLOBIN 7.2 g/dL (14.0-18.0); LYMPHOCYTES # (AUTO) 1.6 (1.0-3.2); LYMPHOCYTES % 24.9 % (18.0-39.1); MEAN CORPUSCULAR HEMOGLOBIN 26.8 pg (28-32); MEAN CORPUSCULAR HGB CONC 29.8 g/dL (31-35); MONOCYTES # (AUTO) 0.2 (0.2-0.8); MONOCYTES % 2.5 % (4.4-11.3); NEUTROPHILS # (AUTO) 4.6 (2.1-6.9); NEUTROPHILS % 69.8 % (38.7-80.0); PLATELET COUNT 82 x10e3/uL (140-360); RED BLOOD COUNT 2.69 x10e6/uL (4.3-5.7); RED CELL DISTRIBUTION WIDTH 14.7 % (11.7-14.4)
[2021-05-04] MEDS: DEXTROSE 5% 1,000 ML IV SCH ×2 (05:58→15:46)
[2021-05-04 05:59] LABS: CALCIUM IONIZED 1.1 mmol/L (1.09-1.30)
[2021-05-04 06:30] LABS: MAGNESIUM 1.4 MG/DL (1.3-2.1)
[2021-05-04 06:31] LABS: ALBUMIN 0.7 g/dL (3.5-5.0); ALBUMIN/GLOBULIN RATIO 0.2 (0.8-2.0); ANION GAP 12.6 mmol/L (8-16); CREATININE, SERUM 4.54 mg/dL (0.72-1.25); POTASSIUM 3.6 mmol/L (3.5-5.1)
[2021-05-04 06:34] LABS: CALCIUM 6.7 mg/dL (8.4-10.2)
[2021-05-04 07:48] LABS: BAND NEUTROPHILS % (MANUAL) 7 %; EOSINOPHILS % (MANUAL) 6 % (0-7); LYMPHOCYTES % (MANUAL) 27 % (19-48); MONOCYTES % (MANUAL) 1 % (3.4-9.0); NEUTROPHILS % (MANUAL) 59 % (40-74); PLATELET ESTIMATE SLIGHTLY DECREASED
[2021-05-04 07:49] LABS: HYPOCHROMASIA SLIGHT; PLATELET MORPHOLOGY COMMENT FEW LARGE; RBC MORPHOLOGY COMMENT NORMAL
[2021-05-04] MEDS: BALSAM PERU/CASTOR OIL 60 GM OINT...G. TP SCH (08:00)
[2021-05-04] MEDS ORDERED: MAGNESIUM SULF 1GRAM/DEXTROSE 100 ML IV ONE (10:10)
[2021-05-04 14:38] LABS: CLARITY,URINE TURBID (CLEAR); COLOR,URINE YELLOW (YELLOW); KETONES,URINE NEGATIVE (NEGATIVE); LEUKOCYTE ESTERASE ,URINE LARGE (NEGATIVE); NITRITE,URINE NEGATIVE (NEGATIVE); PROTEIN,URINE DIPSTICK 2+ (NEGATIVE); URINE UROBILINOGEN 0.2 mg/dL (0.2 - 1)
[2021-05-04 15:04] LABS: BACTERIA,URINE MANY /HPF; WBC,URINE (MAN) 21-50 /HPF (0-5); YEAST,URINE MODERATE
[2021-05-04] MEDS ORDERED: CENTRAL TPN FORMULA 1 BAG IV SCH (20:00)
[2021-05-05] VITALS (25 sets, daily range): BP systolic 71–141; BP diastolic 49–91
[2021-05-05] MEDS: METOCLOPRAMIDE HCL 10 MG/2ML VIAL IV SCH ×2 (01:41→06:27)
[2021-05-05] MEDS: NOREPINEPHRINE 8 MG/D5W 250 ML 250 ML IV PRN ×2 (02:44→19:00)
[2021-05-05 05:56] LABS: BASOPHILS # (AUTO) 0.1 (0.0-0.1); BASOPHILS % 0.7 % (0.0-1.0); EOSINOPHILS # (AUTO) 0.1 (0.0-0.4); EOSINOPHILS % 1.2 % (0.0-6.0); HEMATOCRIT 24.8 % (38.2-49.6); HEMOGLOBIN 7.2 g/dL (14.0-18.0); LYMPHOCYTES # (AUTO) 2.5 (1.0-3.2); LYMPHOCYTES % 31.4 % (18.0-39.1); MEAN CORPUSCULAR HEMOGLOBIN 26.3 pg (28-32); MEAN CORPUSCULAR VOLUME 90.5 fL (81-99); MONOCYTES # (AUTO) 0.1 (0.2-0.8); MONOCYTES % 1.4 % (4.4-11.3); NEUTROPHILS # (AUTO) 5.2 (2.1-6.9); NEUTROPHILS % 64.7 % (38.7-80.0); PLATELET COUNT 91 x10e3/uL (140-360); RED BLOOD COUNT 2.74 x10e6/uL (4.3-5.7)
[2021-05-05 06:14] LABS: ANION GAP 12.5 mmol/L (8-16); CREATININE, SERUM 4.09 mg/dL (0.72-1.25); POTASSIUM 3.5 mmol/L (3.5-5.1)
[2021-05-05 06:18] LABS: CALCIUM 6.6 mg/dL (8.4-10.2)
[2021-05-05] MEDS: BALSAM PERU/CASTOR OIL 60 GM OINT...G. TP SCH (08:07)
[2021-05-05] MEDS: Pantoprazole IV 40 MG in SODIUM CHLORIDE 0.9% 50ML 50 ML IV SCH ×3 (08:11→20:41)
[2021-05-05 08:19] LABS: BAND NEUTROPHILS % (MANUAL) 9 %; LYMPHOCYTES % (MANUAL) 39 % (19-48); MONOCYTES % (MANUAL) 1 % (3.4-9.0); NEUTROPHILS % (MANUAL) 51 % (40-74); PLATELET ESTIMATE SLIGHTLY DECREASED
[2021-05-05 08:21] LABS: ANISOCYTOSIS SLIGHT; HYPOCHROMASIA SLIGHT
[2021-05-05 08:22] LABS: PLATELET MORPHOLOGY COMMENT NORMAL; RBC MORPHOLOGY COMMENT NORMAL
[2021-05-05 11:15] LABS: ABG HCO3 23 mmol/L (22-26); ABG PCO2 53 mmHg (35-45); ABG PH 7.24 (7.35-7.45); ABG PO2 75 mmHg (80-105); ABG TCO2 24
[2021-05-05 13:00] LABS: ABG HCO3 24 mmol/L (22-26); ABG PCO2 71 mmHg (35-45); ABG PH 7.13 (7.35-7.45); ABG PO2 155 mmHg (80-105)
[2021-05-05 13:01] LABS: ABG TCO2 26
[2021-05-05] MEDS ORDERED: CENTRAL TPN FORMULA 1 BAG IV SCH (20:00)
[2021-05-06] VITALS (20 sets, daily range): BP systolic 53–127; BP diastolic 37–81
[2021-05-06] MEDS: Pantoprazole IV 40 MG in SODIUM CHLORIDE 0.9% 50ML 50 ML IV SCH ×4 (01:20→14:27)
[2021-05-06 06:28] LABS: BASOPHILS # (AUTO) 0.1 (0.0-0.1); BASOPHILS % 1.1 % (0.0-1.0); EOSINOPHILS # (AUTO) 0.1 (0.0-0.4); EOSINOPHILS % 1.1 % (0.0-6.0); HEMATOCRIT 22.1 % (38.2-49.6); LYMPHOCYTES # (AUTO) 1.4 (1.0-3.2); LYMPHOCYTES % 31.6 % (18.0-39.1); MEAN CORPUSCULAR HEMOGLOBIN 26.6 pg (28-32); MEAN CORPUSCULAR HGB CONC 29.9 g/dL (31-35); MEAN CORPUSCULAR VOLUME 89.1 fL (81-99); MONOCYTES # (AUTO) 0.1 (0.2-0.8); MONOCYTES % 2.5 % (4.4-11.3); NEUTROPHILS # (AUTO) 2.7 (2.1-6.9); NEUTROPHILS % 62.3 % (38.7-80.0); PLATELET COUNT 74 x10e3/uL (140-360); RED BLOOD COUNT 2.48 x10e6/uL (4.3-5.7); RED CELL DISTRIBUTION WIDTH 14.7 % (11.7-14.4)
[2021-05-06 06:40] LABS: HEMOGLOBIN 6.6 g/dL (14.0-18.0)
[2021-05-06] MEDS ORDERED: SODIUM CHLORIDE 0.9% 250ML 250 ML IV ONE (07:00)
[2021-05-06 07:06] LABS: ALBUMIN 0.6 g/dL (3.5-5.0); ALBUMIN/GLOBULIN RATIO 0.1 (0.8-2.0); ALKALINE PHOSPHATASE 150 IU/L (40-150); ANION GAP 11.1 mmol/L (8-16); BLOOD UREA NITROGEN 49 mg/dL (7-26); BUN/CREATININE RATIO 13 (6-25); CARBON DIOXIDE 21 mmol/L (22-29); CHLORIDE 116 mmol/L (98-107); CREATININE, SERUM 3.91 mg/dL (0.72-1.25); EST GLOMERULAR FILTRATION RATE 20 ML/MIN (60-); GLUCOSE 108 mg/dL (74-118); POTASSIUM 3.1 mmol/L (3.5-5.1); SODIUM 145 mmol/L (136-145)
[2021-05-06 07:07] LABS: ALANINE AMINOTRANSFERASE < 6 IU/L (0-55); CALCIUM 6.9 mg/dL (8.4-10.2)
[2021-05-06] MEDS: NOREPINEPHRINE 8 MG/D5W 250 ML 250 ML IV PRN (08:16)
[2021-05-06] MEDS: BALSAM PERU/CASTOR OIL 60 GM OINT...G. TP SCH (08:16)
[2021-05-06 09:33] LABS: BAND NEUTROPHILS % (MANUAL) 4 %; LYMPHOCYTES % (MANUAL) 23 % (19-48); NEUTROPHILS % (MANUAL) 71 % (40-74); PLATELET ESTIMATE MARKEDLY DECREASED; PLATELET MORPHOLOGY COMMENT NORMAL; RBC MORPHOLOGY COMMENT NORMAL
[2021-05-06] MEDS ORDERED: VASOPRESSIN 60 UNIT in DEXTROSE 5% 50ML 57 ML IV PRN (12:00)
== END 2021-05-06 22:06 | disposition expired | DRG 4 ==
LOC: ER 18:12 → ERHOLD 20:12 → ICU 23:15 → MED/SURG2 04-03 19:41 → ICU 04-10 05:19 → IMCU 05-06 22:05 → UNDODISIN 05-07 01:38
PROVIDERS: ADMIT Internal Medicine; ATTEND Internal Medicine
PROC: 5A1955Z Respiratory Ventilation, Greater than 96 Consecutive Hours (ICD-10-PCS; 2021-04-10)
PROC: 0BH17EZ Insertion of Endotracheal Airway into Trachea, Via Natural or Artificial Opening (ICD-10-PCS; 2021-04-10)
PROC: 3E043XZ Introduction of Vasopressor into Central Vein, Percutaneous Approach (ICD-10-PCS; 2021-04-10)
PROC: 30233N1 Transfusion of Nonautologous Red Blood Cells into Peripheral Vein, Percutaneous Approach (ICD-10-PCS; 2021-04-10)
PROC: 5A12012 Performance of Cardiac Output, Single, Manual (ICD-10-PCS; 2021-04-10)
PROC: 02HV33Z Insertion of Infusion Device into Superior Vena Cava, Percutaneous Approach (ICD-10-PCS; principal; 2021-04-20)
PROC: B548ZZA Ultrasonography of Superior Vena Cava, Guidance (ICD-10-PCS; 2021-04-20)
PROC: 5A12012 Performance of Cardiac Output, Single, Manual (ICD-10-PCS; 2021-04-21)
PROC: 0B110F4 Bypass Trachea to Cutaneous with Tracheostomy Device, Open Approach (ICD-10-PCS; 2021-04-25)
PROC: 0DH63UZ Insertion of Feeding Device into Stomach, Percutaneous Approach (ICD-10-PCS; 2021-04-25)
PROC: 3E0436Z Introduction of Nutritional Substance into Central Vein, Percutaneous Approach (ICD-10-PCS; 2021-05-04)
PROC: 3E043XZ Introduction of Vasopressor into Central Vein, Percutaneous Approach (ICD-10-PCS; 2021-05-06)
DX: A41.9 Sepsis, unspecified organism (principal); G92 Toxic encephalopathy; J69.0 Pneumonitis due to inhalation of food and vomit; N17.0 Acute kidney failure with tubular necrosis; R65.21 Severe sepsis with septic shock; J96.01 Acute respiratory failure with hypoxia; K72.00 Acute and subacute hepatic failure without coma; I63.443 Cerebral infarction due to embolism of bilateral cerebellar arteries; I50.33 Acute on chronic diastolic (congestive) heart failure; J15.6 Pneumonia due to other Gram-negative bacteria; J96.21 Acute and chronic respiratory failure with hypoxia; R40.20 Unspecified coma; I69.351 Hemiplegia and hemiparesis following cerebral infarction affecting right dominant side; M62.82 Rhabdomyolysis; E87.0 Hyperosmolality and hypernatremia; N39.0 Urinary tract infection, site not specified; N17.9 Acute kidney failure, unspecified; E87.1 Hypo-osmolality and hyponatremia; E44.0 Moderate protein-calorie malnutrition; N30.00 Acute cystitis without hematuria; D62 Acute posthemorrhagic anemia; K92.2 Gastrointestinal hemorrhage, unspecified; G93.1 Anoxic brain damage, not elsewhere classified; D68.59 Other primary thrombophilia; R65.20 Severe sepsis without septic shock; I16.0 Hypertensive urgency; Z20.822 Contact with and (suspected) exposure to COVID-19; E78.5 Hyperlipidemia, unspecified; Z99.3 Dependence on wheelchair; I69.391 Dysphagia following cerebral infarction; R13.10 Dysphagia, unspecified; K56.41 Fecal impaction; J98.2 Interstitial emphysema; R62.7 Adult failure to thrive; B95.4 Other streptococcus as the cause of diseases classified elsewhere; R31.0 Gross hematuria; R41.89 Other symptoms and signs involving cognitive functions and awareness; I46.9 Cardiac arrest, cause unspecified; E87.6 Hypokalemia; E83.51 Hypocalcemia; E16.2 Hypoglycemia, unspecified; E83.42 Hypomagnesemia
CPT/HCPCS: 31500; 36415; 36600; 51700; 70450; 70544; 70547; 70551; 71045; 71250; 74018; 74176; 74220; 78606; 80048; 80053; 80202; 81001; 81241; 81400; 82270; 82550; 82553; 82607; 82728; 82746; 82784; 82785; 82805; 82948; 83036; 83540; 83605; 83615; 83735; 83880; 84100; 84165; 84466; 84484; 85007; 85014; 85018; 85025; 85027; 85045; 85303; 85306; 85379; 85597; 85610; 85613; 85730; 86039; 86146; 86147; 86850; 86900; 86920; 87040; 87071; 87086; 87186; 87205; 92950; 93005; 93306; 93880; 94002; 94003; 95812; 95819; 96365; 97139; 99251; 99285; A9521; J0171; J0610; J0692; J1644; J1817; J1940; J2060; J2765; J2916; J3370; J3475; J3480; J7030; J7050; J7070; J7121; J7799; P9016; Q9963; U0002